=== PATIENT | male | born 1950 | race Two or more races ===

== ENCOUNTER 2018-02-07 07:45 | Day surgery (SDC) | payer OTHER ==
[~2018-02-07] VITALS: Ht 172.7 cm; Wt 66.8 kg
[~2018-02-07 07:45] MED LIST: ALBU2.5V NPPB; BACL-19 PO; CEFD300C37 PO; FLUO40CA9 PO; FLUT1AER INH; HYDR4TAB48 PO; METH-356 PO; NITR100C6 PO; PRED20TA PO
[2018-02-07] MEDS ORDERED: FENTANYL PF 100 MCG/2ML ONE (08:28)
[2018-02-07] MEDS ORDERED: MIDAZOLAM 1 MG/ML, 2ML ONE (08:28)
[2018-02-07 08:33] VITALS: BP 122/81
[2018-02-07] MEDS ORDERED: LACTATED RINGERS 1,000 ML IV SCH (08:35)
[2018-02-07 08:48] VITALS: BP 122/81
[2018-02-07] MEDS ORDERED: GABAPENTIN 300 MG CAPSULE PO ONE (09:00)
[2018-02-07] MEDS ORDERED: OxyconTIN ER 20 MG TAB.ER PO ONE (09:00)
[2018-02-07] MEDS ORDERED: ONDANSETRON ODT 8 MG PO ONE (09:00)
[2018-02-07] MEDS ORDERED: ACETAMINOPHEN 500 MG TABLET PO ONE (09:00)
[2018-02-07] MEDS ORDERED: LIDOCAINE-MPF 2% ,5ML ONE (09:36)
[2018-02-07] MEDS ORDERED: DEXAMETHASONE 4 MG/ML, 1ML ONE (09:36)
[2018-02-07] MEDS ORDERED: CEFAZOLIN 1,000 MG ONE (09:36)
[2018-02-07] MEDS ORDERED: PROPOFOL 10 MG/ML, 20ML ONE (09:36)
[2018-02-07] MEDS ORDERED: morphine SULFATE 10 MG/ML, 1ML IV PRN (10:00)
[2018-02-07] MEDS ORDERED: HYDROmorphone 1 MG/ML, 1ML IV PRN (10:00)
[2018-02-07] MEDS ORDERED: PROMETHAZINE 25 MG/ML, 1ML IV PRN (10:00)
[2018-02-07] MEDS ORDERED: ALBUTEROL SULFATE 2.5 MG/3 ML NPPB PRN (10:00)
[2018-02-07] MEDS ORDERED: LORazepam 2 MG/ML, 1ML IVPush PRN (10:00)
[2018-02-07] MEDS ORDERED: LABETALOL 5MG/ML, 20ML IV PRN (10:00)
[2018-02-07] MEDS ORDERED: FENTANYL PF 100 MCG/2ML IV PRN (10:00)
[2018-02-07] MEDS ORDERED: hydrALAzine 20 MG/ML, 1ML IV PRN (10:00)
[2018-02-07] MEDS ORDERED: OXYcodone 5 MG/5 ML ORAL.SOL UDC PO PRN (10:00)
[2018-02-07] MEDS ORDERED: PROMETHAZINE 12.5 MG SUPP PR PRN (10:00)
[2018-02-07] MEDS ORDERED: MEPERIDINE/PF 25MG/0.5ML IVPush PRN (10:00)
== END 2018-02-07 15:15 ==
LOC: OUT 07:45
PROVIDERS: ATTEND Student in an Organized Health Care Education/Training Program
DX: N30.20 Other chronic cystitis without hematuria (principal); J44.9 Chronic obstructive pulmonary disease, unspecified; I10 Essential (primary) hypertension
CPT/HCPCS: 52204; 88305; J0690; J1100; J2250; J2704; J3010; J3490; J7120; Q0162

== ENCOUNTER 2018-06-28 02:24 | Inpatient (IN) | payer OTHER ==
[~2018-06-28] VITALS: Ht 170.2 cm; Wt 62.4 kg
[2018-06-28] MEDS ORDERED: methylPREDNISolone SOD SUCC 125 MG/2 ML IVP ONE (03:00)
[2018-06-28] MEDS ORDERED: SODIUM CHLORIDE 0.9% 1,000ML IVBOLUS ONE (03:00)
[2018-06-28] MEDS ORDERED: methylPREDNISolone SOD SUCC 125 MG/2 ML ONE (03:03)
[2018-06-28 03:22] LABS: BASOPHILS # (AUTO) 0.03 x10^3/uL (0-0.1); BASOPHILS % (AUTO) 0 % (0-1); EOSINOPHILS # (AUTO) 0.71 x10^3/uL (0-0.4); EOSINOPHILS % (AUTO) 10 % (1-7); LYMPHOCYTES % (AUTO) 19 % (22-44); MD NO; MEAN CORPUSCULAR HEMOGLOBIN 28.4 pg (27.5-34.5); MEAN CORPUSCULAR HGB CONC 32.3 g/dL (33.2-36.2); MEAN CORPUSCULAR VOLUME 87.7 fL (81-97); MEAN PLATELET VOLUME 9.3 fL (7.4-10.4); MONOCYTES % (AUTO) 6 % (2-9); NEUTROPHILS # (AUTO) 4.73 x10^3/uL (1.8-6.8); NEUTROPHILS % (AUTO) 65 % (42-75); PLATELET COUNT 199 x10^3/uL (130-400); RED BLOOD COUNT 4.85 x10^6/uL (4.38-5.82); RED CELL DISTRIBUTION WIDTH 17.7 % (9.4-14.8)
[2018-06-28 03:27] LABS: ALANINE AMINOTRANSFERASE 18 U/L (12-78); ANION GAP 7 mmol/L (5-15); CALCIUM 8.7 mg/dL (8.5-10.1); CHLORIDE 106 mmol/L (98-107); CREATININE 1.05 mg/dL (0.7-1.3)
[2018-06-28 03:28] LABS: ALBUMIN 3.4 g/dL (3.4-5.0)
[2018-06-28 03:32] LABS: ALKALINE PHOSPHATASE 116 U/L (45-117); BILIRUBIN,TOTAL 0.4 mg/dL (0.2-1.0); TOTAL PROTEIN 6.9 g/dL (6.4-8.2); TROPONIN I < 0.015 ng/mL (0.000-0.045)
[2018-06-28] MEDS ORDERED: SODIUM CHLORIDE 0.9% 1,000 ML IV ONE (04:08)
[2018-06-28] MEDS ORDERED: PROMETHAZINE 25 MG/ML, 1ML IM PRN (04:30)
[2018-06-28] MEDS ORDERED: ONDANSETRON 2MG/ML, 2ML IVPush PRN (04:30)
[2018-06-28] MEDS ORDERED: hydrALAzine 20 MG/ML, 1ML IVPush PRN (04:30)
[2018-06-28] MEDS ORDERED: ALBUTEROL SULFATE 2.5 MG/3 ML NPPB PRN (04:30)
[2018-06-28] MEDS ORDERED: DIPHENHYDRAMINE 25 MG CAPSULE PO PRN (04:30)
[2018-06-28] MEDS ORDERED: POLYETHYLENE GLYCOL 17 GM PACKET PO PRN (04:30)
[2018-06-28] MEDS ORDERED: POTASSIUM CHLORIDE 20 MEQ TAB.ER.PRT PO ONE (04:30)
[2018-06-28] MEDS ORDERED: POTASSIUM CHLORIDE 20 MEQ TAB.ER.PRT ONE (05:45)
[2018-06-28] MEDS ORDERED: ENOXAPARIN 40 MG/0.4 ML ONE (05:45)
[2018-06-28 06:00] VITALS: BP 115/64
[2018-06-28] MEDS: ENOXAPARIN 40 MG/0.4 ML SQ SCH (06:06)
[2018-06-28] MEDS: NS + 20MEQ KCL 1,000 ML IV SCH ×2 (06:09→15:22)
[2018-06-28] MEDS: ALBUTEROL/IPRATROPIUM 2.5MG/0.5MG, 3 ML NPPB SCH ×4 (07:00→20:00)
[2018-06-28] MEDS: FLUTICASONE/VILANTEROL 100-25MCG/INH INH SCH (09:00)
[2018-06-28] MEDS: FLUOXETINE HCL 20 MG CAPSULE PO SCH (09:45)
[2018-06-28] MEDS: BACLOFEN 10 MG TABLET PO SCH (09:45)
[2018-06-28] MEDS: METHADONE 10 MG TABLET PO SCH ×3 (09:46→21:23)
[2018-06-28] MEDS: methylPREDNISolone SOD SUCC 125 MG/2 ML IVPush SCH ×3 (09:46→21:23)
[2018-06-28] MEDS ORDERED: HYDROmorphone 2MG TABLET ONE ×2 (09:51→22:37)
[2018-06-28] MEDS: HYDROmorphone 4MG TABLET PO PRN ×2 (09:56→22:50)
[2018-06-28 14:23] VITALS: BP 101/56
[2018-06-28 21:30] VITALS: BP 112/54
[2018-06-28] MEDS: ACETAMINOPHEN 325 MG TABLET PO PRN (22:49)
[2018-06-29 02:05] VITALS: BP 123/71
[2018-06-29] MEDS: NS + 20MEQ KCL 1,000 ML IV SCH (03:14)
[2018-06-29] MEDS: methylPREDNISolone SOD SUCC 125 MG/2 ML IVPush SCH ×3 (04:02→15:29)
[2018-06-29] MEDS: ENOXAPARIN 40 MG/0.4 ML SQ SCH (05:52)
[2018-06-29] MEDS: ALBUTEROL/IPRATROPIUM 2.5MG/0.5MG, 3 ML NPPB SCH ×3 (07:12→15:10)
[2018-06-29 07:24] VITALS: BP 122/67
[2018-06-29] MEDS: FLUTICASONE/VILANTEROL 100-25MCG/INH INH SCH (09:00)
[2018-06-29] MEDS ORDERED: METH4TAB2 PO (09:48)
[2018-06-29] MEDS: BACLOFEN 10 MG TABLET PO SCH (09:52)
[2018-06-29] MEDS: FLUOXETINE HCL 20 MG CAPSULE PO SCH (09:53)
[2018-06-29] MEDS: METHADONE 10 MG TABLET PO SCH ×2 (09:53→15:29)
[2018-06-29] MEDS ORDERED: HYDROmorphone 2MG TABLET ONE (10:52)
[2018-06-29] MEDS: HYDROmorphone 4MG TABLET PO PRN (10:56)
[2018-06-29] MEDS: ACETAMINOPHEN 325 MG TABLET PO PRN (11:31)
[2018-06-29 15:35] VITALS: BP 103/64
== END 2018-06-29 17:17 | disposition home or self-care (01) | DRG 189 ==
LOC: ED 02:33 → EDIP 04:08 → 4EST 05:40
PROVIDERS: ADMIT Hospitalist; ATTEND Hospitalist
DX: J96.21 Acute and chronic respiratory failure with hypoxia (principal); J44.1 Chronic obstructive pulmonary disease with (acute) exacerbation; F41.0 Panic disorder [episodic paroxysmal anxiety]; M45.9 Ankylosing spondylitis of unspecified sites in spine; E11.9 Type 2 diabetes mellitus without complications; M79.7 Fibromyalgia; F17.210 Nicotine dependence, cigarettes, uncomplicated; G62.9 Polyneuropathy, unspecified; G89.29 Other chronic pain; Z87.01 Personal history of pneumonia (recurrent); Z71.6 Tobacco abuse counseling; Z90.49 Acquired absence of other specified parts of digestive tract; Z87.442 Personal history of urinary calculi; Z99.81 Dependence on supplemental oxygen; Z79.899 Other long term (current) drug therapy; Z88.2 Allergy status to sulfonamides; Z91.018 Allergy to other foods
CPT/HCPCS: 36415; 71045; 80053; 83880; 84484; 85025; 87040; 93005; 94640; 94644; 96361; 96374; 99291; G0378; J1650; J3480; J7620; J2930; J7030

== ENCOUNTER 2018-07-02 07:49 | Emergency (ER) | payer OTHER ==
[~2018-07-02] VITALS: Ht 172.7 cm; Wt 62.0 kg
[~2018-07-02 07:49] MED LIST changes: +METH4TAB2 PO
[2018-07-02] MEDS ORDERED: SODIUM CHLORIDE 0.9% 1,000 ML IV ONE (07:59)
[2018-07-02] MEDS ORDERED: ONDANSETRON ODT 4 MG PO ONE (08:00)
[2018-07-02] MEDS ORDERED: SODIUM CHLORIDE 0.9% 1,000ML IVBOLUS ONE (08:00)
[2018-07-02] MEDS ORDERED: SODIUM CHLORIDE FLUSH 10ML SYR IVF ONE (08:00)
[2018-07-02] MEDS ORDERED: HYDROmorphone 2 MG/ML, 1ML IVPush PRN (08:00)
[2018-07-02 08:40] LABS: BASOPHILS # (AUTO) 0.04 x10^3/uL (0-0.1); BASOPHILS % (AUTO) 0 % (0-1); EOSINOPHILS # (AUTO) 0.04 x10^3/uL (0-0.4); EOSINOPHILS % (AUTO) 0 % (1-7); LYMPHOCYTES # (AUTO) 0.72 x10^3/uL (1-3.4); LYMPHOCYTES % (AUTO) 8 % (22-44); MD NO; MEAN CORPUSCULAR HEMOGLOBIN 27.8 pg (27.5-34.5); MEAN CORPUSCULAR VOLUME 86.8 fL (81-97); MEAN PLATELET VOLUME 9.4 fL (7.4-10.4); MONOCYTES # (AUTO) 0.59 x10^3/uL (0.2-0.8); MONOCYTES % (AUTO) 6 % (2-9); NEUTROPHILS # (AUTO) 8.24 x10^3/uL (1.8-6.8); NEUTROPHILS % (AUTO) 86 % (42-75); PLATELET COUNT 229 x10^3/uL (130-400); RED BLOOD COUNT 5.69 x10^6/uL (4.38-5.82); RED CELL DISTRIBUTION WIDTH 17.5 % (9.4-14.8)
[2018-07-02] MEDS ORDERED: ONDANSETRON ODT 4 MG ONE (08:43)
[2018-07-02] MEDS ORDERED: HYDROmorphone 2 MG/ML, 1ML ONE (08:43)
[2018-07-02 08:49] LABS: ALANINE AMINOTRANSFERASE 33 U/L (12-78); ANION GAP 9 mmol/L (5-15); CALCIUM 8.8 mg/dL (8.5-10.1); CHLORIDE 99 mmol/L (98-107); CREATININE 0.88 mg/dL (0.7-1.3)
[2018-07-02 08:51] LABS: ALKALINE PHOSPHATASE 110 U/L (45-117); TOTAL PROTEIN 6.7 g/dL (6.4-8.2)
[2018-07-02] MEDS ORDERED: OMNIPAQUE 350 MG/ML, 100ML BOTTLE ONE (09:49)
[2018-07-02 11:52] LABS: MICROSCOPIC AUTO
[2018-07-02 12:05] LABS: CULTURE INDICATED? YES
[2018-07-02 13:22] VITALS: BP 101/56
== END 2018-07-02 13:26 | disposition home or self-care (01) ==
LOC: ED 10:12
DX: N30.00 Acute cystitis without hematuria (principal); R11.2 Nausea with vomiting, unspecified; J44.9 Chronic obstructive pulmonary disease, unspecified; E11.9 Type 2 diabetes mellitus without complications; Z90.49 Acquired absence of other specified parts of digestive tract; F17.200 Nicotine dependence, unspecified, uncomplicated
CPT/HCPCS: 36415; 74177; 80053; 81001; 83690; 85025; 87086; 93005; 96361; 96374; 99285; J1170; J7030; Q0162; Q9967; 87106

== ENCOUNTER 2018-08-26 22:32 | Emergency (ER) | payer OTHER ==
[~2018-08-26] VITALS: Ht 170.2 cm; Wt 65.0 kg
[2018-08-26] MEDS ORDERED: ONDANSETRON ODT 4 MG PO ONE (23:00)
[2018-08-26] MEDS ORDERED: methylPREDNISolone SOD SUCC 125 MG/2 ML IVPush ONE (23:00)
[2018-08-26 23:21] LABS: BASOPHILS # (AUTO) 0.14 x10^3/uL (0-0.1); BASOPHILS % (AUTO) 2 % (0-1); EOSINOPHILS # (AUTO) 0.68 x10^3/uL (0-0.4); EOSINOPHILS % (AUTO) 8 % (1-7); LYMPHOCYTES # (AUTO) 0.83 x10^3/uL (1-3.4); LYMPHOCYTES % (AUTO) 10 % (22-44); MD NO; MEAN CORPUSCULAR HEMOGLOBIN 28.1 pg (27.5-34.5); MEAN CORPUSCULAR HGB CONC 32.5 g/dL (33.2-36.2); MEAN CORPUSCULAR VOLUME 86.6 fL (81-97); MEAN PLATELET VOLUME 9.2 fL (7.4-10.4); MONOCYTES # (AUTO) 0.45 x10^3/uL (0.2-0.8); MONOCYTES % (AUTO) 5 % (2-9); NEUTROPHILS # (AUTO) 6.61 x10^3/uL (1.8-6.8); NEUTROPHILS % (AUTO) 76 % (42-75); PLATELET COUNT 184 x10^3/uL (130-400); RED BLOOD COUNT 4.61 x10^6/uL (4.38-5.82); RED CELL DISTRIBUTION WIDTH 18.4 % (9.4-14.8)
[2018-08-26 23:31] LABS: ALANINE AMINOTRANSFERASE 20 U/L (12-78); ANION GAP 7 mmol/L (5-15); CHLORIDE 111 mmol/L (98-107); CREATININE 0.96 mg/dL (0.7-1.3)
[2018-08-26] MEDS ORDERED: methylPREDNISolone SOD SUCC 125 MG/2 ML ONE (23:32)
[2018-08-26] MEDS ORDERED: ONDANSETRON ODT 4 MG ONE (23:32)
[2018-08-26 23:35] LABS: ALKALINE PHOSPHATASE 112 U/L (45-117); BILIRUBIN,TOTAL 0.2 mg/dL (0.2-1.0); TOTAL PROTEIN 6.3 g/dL (6.4-8.2); TROPONIN I < 0.015 ng/mL (0.000-0.045)
[2018-08-27 01:36] VITALS: BP 105/48
== END 2018-08-27 01:57 | disposition home or self-care (01) ==
LOC: ED 23:23
DX: J44.1 Chronic obstructive pulmonary disease with (acute) exacerbation (principal); F17.210 Nicotine dependence, cigarettes, uncomplicated; Z90.49 Acquired absence of other specified parts of digestive tract; E11.9 Type 2 diabetes mellitus without complications
CPT/HCPCS: 36415; 71045; 80053; 83880; 84484; 85025; 93005; 96374; 99284; J2930; Q0162

== ENCOUNTER 2018-08-30 23:21 | Inpatient (IN) | payer OTHER ==
[~2018-08-30] VITALS: Ht 175.3 cm; Wt 62.9 kg
[2018-08-30] MEDS ORDERED: IPRATROPIUM 0.5 MG/2.5 ML INHA ONE (23:40)
[2018-08-30 23:48] LABS: BASOPHILS # (AUTO) 0.02 x10^3/uL (0-0.1); BASOPHILS % (AUTO) 0 % (0-1); EOSINOPHILS # (AUTO) 0.01 x10^3/uL (0-0.4); EOSINOPHILS % (AUTO) 0 % (1-7); LYMPHOCYTES % (AUTO) 6 % (22-44); MD NO; MEAN CORPUSCULAR HEMOGLOBIN 28.1 pg (27.5-34.5); MEAN CORPUSCULAR HGB CONC 32.4 g/dL (33.2-36.2); MEAN CORPUSCULAR VOLUME 86.7 fL (81-97); MONOCYTES % (AUTO) 5 % (2-9); NEUTROPHILS # (AUTO) 7.22 x10^3/uL (1.8-6.8); NEUTROPHILS % (AUTO) 89 % (42-75); PLATELET COUNT 229 x10^3/uL (130-400); RED BLOOD COUNT 4.82 x10^6/uL (4.38-5.82); RED CELL DISTRIBUTION WIDTH 18.2 % (9.4-14.8)
[2018-08-30 23:56] LABS: ANION GAP 8 mmol/L (5-15); CALCIUM 8.7 mg/dL (8.5-10.1); CHLORIDE 105 mmol/L (98-107); CREATININE 0.86 mg/dL (0.7-1.3)
[2018-08-31] LABS: TROPONIN I < 0.015 ng/mL (0.000-0.045)
[2018-08-31] MEDS ORDERED: IPRATROPIUM 0.5 MG/2.5 ML INHA NPPB ONE
[2018-08-31] MEDS ORDERED: CEFTRIAXONE PMX 1GM/50ML 50 ML ONE (00:21)
[2018-08-31] MEDS ORDERED: CEFTRIAXONE PMX 1GM/50ML 50 ML IV ONE (00:30)
[2018-08-31] MEDS ORDERED: AZITHROMYCIN 500 MG in SODIUM CHLORIDE 0.9% 250 ML IV ONE (00:30)
[2018-08-31] MEDS ORDERED: GUAIFENESIN/COD200MG-20MG/10ML LIQUID PO PRN (01:00)
[2018-08-31] MEDS ORDERED: hydrALAzine 20 MG/ML, 1ML IVPush PRN (01:00)
[2018-08-31] MEDS ORDERED: ONDANSETRON 2MG/ML, 2ML IVPush PRN (01:00)
[2018-08-31] MEDS ORDERED: ALBUTEROL SULFATE 2.5 MG/3 ML NPPB PRN (01:00)
[2018-08-31] MEDS ORDERED: DOCUSATE 100 MG CAPSULE PO PRN (01:00)
[2018-08-31] MEDS ORDERED: ACETAMINOPHEN 325 MG TABLET PO PRN (01:00)
[2018-08-31] MEDS ORDERED: ENOXAPARIN 40 MG/0.4 ML ONE (01:14)
[2018-08-31] MEDS ORDERED: NICOTINE 14MG/24 HR PATCH.TD24 ONE (01:15)
[2018-08-31] MEDS: ENOXAPARIN 40 MG/0.4 ML SQ SCH (01:18)
[2018-08-31] MEDS: NICOTINE 14MG/24 HR PATCH.TD24 TD SCH (01:18)
[2018-08-31 02:00] VITALS: BP 116/74
[2018-08-31] MEDS: methylPREDNISolone SOD SUCC 125 MG/2 ML IVPush SCH ×4 (02:46→20:41)
[2018-08-31] MEDS: ONDANSETRON 2MG/ML, 2ML IVPush PRN (02:47)
[2018-08-31] MEDS: HYDROcodone/APAP 5/325 TABLET PO PRN (02:47)
[2018-08-31] MEDS: BACLOFEN 10 MG TABLET PO PRN ×2 (02:47→16:18)
[2018-08-31] MEDS: ALBUTEROL/IPRATROPIUM 2.5MG/0.5MG, 3 ML NPPB SCH ×6 (03:00→22:30)
[2018-08-31] MEDS ORDERED: ALBUTEROL SULFATE 2.5 MG/3 ML HHN SCH (06:00)
[2018-08-31 07:28] VITALS: BP 117/67
[2018-08-31] MEDS: PANTOPROZOLE 40MG TABLET PO SCH (08:29)
[2018-08-31] MEDS: METHADONE 10 MG TABLET PO SCH ×3 (08:29→20:41)
[2018-08-31] MEDS: FLUOXETINE HCL 20 MG CAPSULE PO SCH (08:30)
[2018-08-31] MEDS: BUDESONIDE 0.5 MG/2 ML INHA HHN SCH ×2 (09:00→18:32)
[2018-08-31] MEDS ORDERED: FLUTICASONE/VILANTEROL 100-25MCG/INH INH SCH (09:00)
[2018-08-31 12:49] VITALS: BP 116/70
[2018-08-31 15:25] LABS: CULTURE INDICATED? YES; MICROSCOPIC INDICATED
[2018-08-31 19:41] VITALS: BP 118/73
[2018-09-01] MEDS: CEFTRIAXONE PMX 1GM/50ML 50 ML IV SCH ×2 (00:11→23:40)
[2018-09-01 01:02] VITALS: BP 135/71
[2018-09-01] MEDS: AZITHROMYCIN 500 MG in SODIUM CHLORIDE 0.9% 250 ML IV SCH (01:15)
[2018-09-01] MEDS: ENOXAPARIN 40 MG/0.4 ML SQ SCH (01:15)
[2018-09-01] MEDS: NICOTINE 14MG/24 HR PATCH.TD24 TD SCH (01:15)
[2018-09-01] MEDS: HYDROcodone/APAP 5/325 TABLET PO PRN ×2 (01:16→08:22)
[2018-09-01] MEDS: ALBUTEROL/IPRATROPIUM 2.5MG/0.5MG, 3 ML NPPB SCH ×6 (03:00→22:50)
[2018-09-01] MEDS: methylPREDNISolone SOD SUCC 125 MG/2 ML IVPush SCH ×2 (04:21→08:23)
[2018-09-01 05:17] LABS: BASOPHILS # (AUTO) 0.06 x10^3/uL (0-0.1); BASOPHILS % (AUTO) 1 % (0-1); EOSINOPHILS % (AUTO) 0 % (1-7); LYMPHOCYTES # (AUTO) 0.57 x10^3/uL (1-3.4); LYMPHOCYTES % (AUTO) 5 % (22-44); MD NO; MEAN CORPUSCULAR HEMOGLOBIN 28.2 pg (27.5-34.5); MEAN CORPUSCULAR HGB CONC 32.3 g/dL (33.2-36.2); MEAN CORPUSCULAR VOLUME 87.3 fL (81-97); MEAN PLATELET VOLUME 9.2 fL (7.4-10.4); MONOCYTES # (AUTO) 0.39 x10^3/uL (0.2-0.8); MONOCYTES % (AUTO) 4 % (2-9); NEUTROPHILS # (AUTO) 10.12 x10^3/uL (1.8-6.8); NEUTROPHILS % (AUTO) 91 % (42-75); PLATELET COUNT 222 x10^3/uL (130-400); RED BLOOD COUNT 4.57 x10^6/uL (4.38-5.82); RED CELL DISTRIBUTION WIDTH 18.4 % (9.4-14.8)
[2018-09-01 05:27] LABS: ANION GAP 6 mmol/L (5-15); CHLORIDE 106 mmol/L (98-107); CREATININE 0.93 mg/dL (0.7-1.3)
[2018-09-01] MEDS: BUDESONIDE 0.5 MG/2 ML INHA HHN SCH ×2 (07:10→18:53)
[2018-09-01 07:24] VITALS: BP 147/73
[2018-09-01] MEDS: FLUOXETINE HCL 20 MG CAPSULE PO SCH (08:21)
[2018-09-01] MEDS: BACLOFEN 10 MG TABLET PO PRN (08:21)
[2018-09-01] MEDS: PANTOPROZOLE 40MG TABLET PO SCH (08:22)
[2018-09-01] MEDS: METHADONE 10 MG TABLET PO SCH ×3 (08:23→22:01)
[2018-09-01] MEDS ORDERED: HYDROmorphone 4MG TABLET PO PRN (11:30)
[2018-09-01] MEDS: HYDROmorphone 2MG TABLET PO PRN (12:36)
[2018-09-01 12:37] VITALS: BP 118/74
[2018-09-01 19:53] VITALS: BP 128/66
[2018-09-02] MEDS ORDERED: AZIT500T5 PO (00:23)
[2018-09-02] MEDS ORDERED: OMEP-110 PO (00:23)
[2018-09-02] MEDS ORDERED: ALBU2.5V NPPB (00:23)
[2018-09-02] MEDS ORDERED: PRED10TA PO (00:23)
[2018-09-02] MEDS: AZITHROMYCIN 500 MG in SODIUM CHLORIDE 0.9% 250 ML IV SCH (01:15)
[2018-09-02] MEDS: NICOTINE 14MG/24 HR PATCH.TD24 TD SCH (01:16)
[2018-09-02] MEDS: ENOXAPARIN 40 MG/0.4 ML SQ SCH (01:16)
[2018-09-02 01:46] VITALS: BP 131/75
[2018-09-02] MEDS: ALBUTEROL/IPRATROPIUM 2.5MG/0.5MG, 3 ML NPPB SCH ×4 (02:39→14:08)
[2018-09-02] MEDS: HYDROmorphone 2MG TABLET PO PRN (04:23)
[2018-09-02] MEDS: BUDESONIDE 0.5 MG/2 ML INHA HHN SCH (06:50)
[2018-09-02 07:15] VITALS: BP 139/83
[2018-09-02] MEDS ORDERED: METHADONE 5 MG TABLET ONE (07:41)
[2018-09-02] MEDS: PANTOPROZOLE 40MG TABLET PO SCH (07:45)
[2018-09-02] MEDS: METHADONE 10 MG TABLET PO SCH (07:46)
[2018-09-02] MEDS: FLUOXETINE HCL 20 MG CAPSULE PO SCH (07:46)
[2018-09-02] MEDS ORDERED: TAMS-11 PO (11:00)
[2018-09-02] MEDS ORDERED: ONDANSETRON ODT 4 MG ONE (12:27)
[2018-09-02] MEDS: ONDANSETRON 2MG/ML, 2ML IVPush PRN (12:29)
[2018-09-02 13:08] VITALS: BP 149/81
== END 2018-09-02 15:20 | disposition home or self-care (01) | DRG 193 ==
LOC: ED 23:39 → EDIP 08-31 00:33 → 4EST 08-31 01:54 → DCLOUNGE 09-02 15:07
PROVIDERS: ADMIT Internal Medicine; ATTEND Internal Medicine
PROC: 0T9B70Z Drainage of Bladder with Drainage Device, Via Natural or Artificial Opening (ICD-10-PCS; principal; 2018-09-02)
DX: J15.9 Unspecified bacterial pneumonia (principal); J96.21 Acute and chronic respiratory failure with hypoxia; J44.1 Chronic obstructive pulmonary disease with (acute) exacerbation; K51.90 Ulcerative colitis, unspecified, without complications; J44.0 Chronic obstructive pulmonary disease with (acute) lower respiratory infection; G89.29 Other chronic pain; E11.42 Type 2 diabetes mellitus with diabetic polyneuropathy; Z87.442 Personal history of urinary calculi; Z90.49 Acquired absence of other specified parts of digestive tract; Z99.81 Dependence on supplemental oxygen; Z88.2 Allergy status to sulfonamides
CPT/HCPCS: 36415; 71045; 80048; 81001; 82040; 83735; 83880; 84100; 84484; 85025; 87040; 87086; 87205; 93005; 94640; 96365; 96367; 96372; G0378; J0456; J0696; J1650; J2405; J7620; J7626; J7644; J2930; J7050; J7512

== ENCOUNTER 2018-09-08 12:11 | Emergency (ER) | payer OTHER ==
[~2018-09-08] VITALS: Ht 172.7 cm; Wt 67.7 kg
[~2018-09-08 12:11] MED LIST changes: +AZIT500T5 PO; +OMEP-110 PO; +PRED10TA PO; +TAMS-11 PO
[2018-09-08 12:17] VITALS: BP 120/57
[2018-09-08] MEDS ORDERED: LIDOCAINE 2%,20 ML JEL.PF.APP MM ONE (13:13)
== END 2018-09-08 14:23 | disposition home or self-care (01) ==
LOC: ED 13:02
DX: R33.9 Retention of urine, unspecified (principal); T83.098A Other mechanical complication of other urinary catheter, initial encounter; J44.9 Chronic obstructive pulmonary disease, unspecified; E11.9 Type 2 diabetes mellitus without complications; F32.9 Major depressive disorder, single episode, unspecified; Z90.49 Acquired absence of other specified parts of digestive tract
CPT/HCPCS: 51702; 99284; C1726; 99283

== ENCOUNTER → 2018-09-25 | Outpatient (CLI) | payer OTHER ==
[~2018-09-25] MED LIST changes: -METH-356 PO; +METH10TA2 PO
== END | disposition home or self-care (01) ==
LOC: CFH 13:07
PROVIDERS: ATTEND Registered Nurse
DX: M51.37 Other intervertebral disc degeneration, lumbosacral region (principal); M41.86 Other forms of scoliosis, lumbar region
CPT/HCPCS: 72114; 72202

== ENCOUNTER 2019-02-14 20:51 | Inpatient (IN) | payer MEDICARE ==
[~2019-02-14] VITALS: Ht 172.7 cm; Wt 79.0 kg
[~2019-02-14 20:51] MED LIST changes: +PROPOFOL 10 MG/ML, 100ML IV ONE
[2019-02-14 21:12] LABS: BASOPHILS # (AUTO) 0.09 x10^3/uL (0-0.1); BASOPHILS % (AUTO) 1 % (0-1); EOSINOPHILS # (AUTO) 1.38 x10^3/uL (0-0.4); EOSINOPHILS % (AUTO) 13 % (1-7); LYMPHOCYTES # (AUTO) 2.46 x10^3/uL (1-3.4); LYMPHOCYTES % (AUTO) 24 % (22-44); MD NO; MEAN CORPUSCULAR HEMOGLOBIN 25.3 pg (27.5-34.5); MEAN CORPUSCULAR HGB CONC 31.2 g/dL (33.2-36.2); MEAN CORPUSCULAR VOLUME 80.9 fL (81-97); MEAN PLATELET VOLUME 9.6 fL (7.4-10.4); MONOCYTES # (AUTO) 0.58 x10^3/uL (0.2-0.8); MONOCYTES % (AUTO) 6 % (2-9); NEUTROPHILS % (AUTO) 56 % (42-75); PLATELET COUNT 268 x10^3/uL (130-400); RED BLOOD COUNT 4.65 x10^6/uL (4.38-5.82); RED CELL DISTRIBUTION WIDTH 18.7 % (9.4-14.8)
[2019-02-14] MEDS ORDERED: ALBUTEROL/IPRATROPIUM 2.5MG/0.5MG, 3 ML ONE (21:12)
--- NOTE | 2019-02-14 21:13 | NUR ---
bib remsa for resp distress. pt called was a/ox4 tripoding while going to the ambulance from house. pt then intubated, given 250 ketamine/100mcg fent. bp was 170's sbp in route.
[2019-02-14 21:24] LABS: ALANINE AMINOTRANSFERASE 15 U/L (12-78); ALBUMIN 3.2 g/dL (3.4-5.0); ANION GAP 5 mmol/L (5-15); CALCIUM 8.2 mg/dL (8.5-10.1); CHLORIDE 110 mmol/L (98-107); CREATININE 1.12 mg/dL (0.7-1.3)
[2019-02-14 21:28] LABS: ALKALINE PHOSPHATASE 111 U/L (45-117); BILIRUBIN,TOTAL < 0.1 mg/dL (0.2-1.0); TOTAL PROTEIN 6.5 g/dL (6.4-8.2); TROPONIN I < 0.015 ng/mL (0.000-0.045)
[2019-02-14] MEDS ORDERED: SODIUM CHLORIDE 0.9% 1,000ML IVBOLUS ONE ×2 (21:30→22:30)
[2019-02-14] MEDS: ALBUTEROL/IPRATROPIUM 2.5MG/0.5MG, 3 ML INLINE SCH (21:30)
[2019-02-14] MEDS ORDERED: NOREPINEPHRINE 4 MG in SODIUM CHLORIDE 0.9% 246 ML IV PRN ×2 (21:30→22:18)
[2019-02-14] MEDS ORDERED: MIDAZOLAM HCL 50 MG in SODIUM CHLORIDE 0.9% 240 ML IV PRN (21:30)
--- NOTE | 2019-02-14 21:41 | NUR ---
at bs, stated "jon" for password to talk to her on phone c/o poc. gave cell phone and 1 denture. so no belongings with pt left.
--- NOTE | 2019-02-14 21:57 | NUR ---
2 sets bc drawn by elizabeth from lab
[2019-02-14] MEDS ORDERED: ALBUTEROL/IPRATROPIUM 2.5MG/0.5MG, 3 ML NPPB PRN (22:00)
--- NOTE | 2019-02-14 22:02 | NUR ---
spouse: Jennifer Durand [phone] cell [phone]
--- NOTE | 2019-02-14 22:08 | NUR ---
daughter info: SUSHIL Srinivasan [phone] password: [email or web address]
--- NOTE | 2019-02-14 22:19 | NUR ---
per md paez give full liter bolus, started other 500ml now. set up for central line, pt sedated, see vs. went home with belongings
--- NOTE | 2019-02-14 22:26 | NUR ---
bedside report to karla hua. 1st bolus of ns is infusing, to be followed by 2nd liter then will reassess the central line after that is finished.
[2019-02-14] MEDS ORDERED: LIDOCAINE-MPF 1%, 2ML ENDO PRN (22:30)
[2019-02-14] MEDS ORDERED: BISACODYL 10 MG SUPP PR PRN (22:30)
[2019-02-14] MEDS ORDERED: SENNA/DOCUSATE TABLET NG PRN (22:30)
[2019-02-14] MEDS ORDERED: GLUCAGON 1 MG IM PRN (22:30)
[2019-02-14] MEDS ORDERED: PHARMACY MAY ADJ FOR RENAL FX MC SCH (22:30)
[2019-02-14] MEDS ORDERED: DEXTROSE 4 GM TAB.CHEW PO PRN (22:30)
[2019-02-14] MEDS ORDERED: SENNA 176 MG/5 ML ORAL SOL NG PRN (22:30)
[2019-02-14] MEDS ORDERED: DEXTROSE 50%, 50ML SYRINGE IVPush PRN (22:30)
--- NOTE | 2019-02-14 22:37 | NUR ---
Dr. Choi at bedside to evaluate pt for admission.
[2019-02-14] MEDS ORDERED: methylPREDNISolone SOD SUCC 125 MG/2 ML IVPush STA (22:38)
[2019-02-14] MEDS ORDERED: methylPREDNISolone SOD SUCC 125 MG/2 ML ONE (22:49)
[2019-02-14] MEDS ORDERED: FAMOTIDINE 20 MG/2 ML ONE (22:50)
[2019-02-14] MEDS: FAMOTIDINE 20 MG/2 ML IV SCH (22:55)
--- NOTE | 2019-02-14 22:56 | NUR ---
Pt medicated per MAR. Pt remains on all monitors, NSR noted, 2nd liter of NS infusing, BP remains stable, MAP 74. Will pause levophed to reassess need after 2nd liter is complete, per conversation with ERP.
[2019-02-14] MEDS ORDERED: methylPREDNISolone SOD SUCC 125 MG/2 ML IVPush SCH (23:00)
[2019-02-14] MEDS ORDERED: MIDAZOLAM 1 MG/ML, 5ML IVPush ONE (23:00)
--- NOTE | 2019-02-14 23:09 | NUR ---
Telephone SBAR report given to RNMelanie.
[2019-02-14 23:45] VITALS: BP_SYST 115; BP_SYST 92; BP_DIAS 49; BP_DIAS 52
[2019-02-15] MEDS: CEFTRIAXONE PMX 1GM/50ML 50 ML IV SCH ×2 (00:20→23:42)
[2019-02-15] MEDS: SODIUM CHLORIDE 0.9% 1,000 ML IV SCH ×2 (00:29→19:23)
[2019-02-15] MEDS: DOXYCYCLINE 100 MG in DEXTROSE 5% 250 ML IV SCH ×2 (00:59→12:21)
[2019-02-15] MEDS: ENOXAPARIN 40 MG/0.4 ML SQ SCH (01:02)
[2019-02-15 02:21] LABS: CULTURE INDICATED? YES; MICROSCOPIC INDICATED
[2019-02-15] MEDS: ALBUTEROL/IPRATROPIUM 2.5MG/0.5MG, 3 ML INLINE SCH ×6 (02:30→22:29)
[2019-02-15 03:50] VITALS: BP 102/59
[2019-02-15 04:37] LABS: MEAN CORPUSCULAR HEMOGLOBIN 25.2 pg (27.5-34.5); MEAN CORPUSCULAR VOLUME 81.3 fL (81-97); MEAN PLATELET VOLUME 9.6 fL (7.4-10.4); PLATELET COUNT 184 x10^3/uL (130-400); RED BLOOD COUNT 4.42 x10^6/uL (4.38-5.82); RED CELL DISTRIBUTION WIDTH 18.7 % (9.4-14.8)
[2019-02-15 04:44] LABS: ALANINE AMINOTRANSFERASE 39 U/L (12-78); ALBUMIN 2.9 g/dL (3.4-5.0); ANION GAP 6 mmol/L (5-15); CALCIUM 8.1 mg/dL (8.5-10.1); CHLORIDE 113 mmol/L (98-107)
[2019-02-15 04:48] LABS: ALKALINE PHOSPHATASE 115 U/L (45-117); BILIRUBIN,TOTAL 0.2 mg/dL (0.2-1.0); TOTAL PROTEIN 5.9 g/dL (6.4-8.2); TROPONIN I 0.028 ng/mL (0.000-0.045)
[2019-02-15 04:57] LABS: BASOPHILS # (AUTO) 0.02 x10^3/uL (0-0.1); BASOPHILS % (AUTO) 0 % (0-1); EOSINOPHILS # (AUTO) 0.01 x10^3/uL (0-0.4); EOSINOPHILS % (AUTO) 0 % (1-7); LYMPHOCYTES # (AUTO) 0.51 x10^3/uL (1-3.4); LYMPHOCYTES % (AUTO) 4 % (22-44); MD SCAN; MONOCYTES # (AUTO) 0.04 x10^3/uL (0.2-0.8); MONOCYTES % (AUTO) 0 % (2-9); NEUTROPHILS # (AUTO) 11.26 x10^3/uL (1.8-6.8); NEUTROPHILS % (AUTO) 95 % (42-75)
[2019-02-15] MEDS: PROPOFOL 100 ML IV PRN ×2 (06:11→16:15)
[2019-02-15] MEDS: BUDESONIDE 0.5 MG/2 ML INHA NPPB SCH ×2 (06:35→22:29)
[2019-02-15] MEDS: INSULIN LISPRO 100 UNITS/ML, PEN SQ-INSULIN SCH ×3 (07:00→19:27)
[2019-02-15] MEDS ORDERED: INSULIN LISPRO 100 UNITS/ML, PEN SQ-INSULIN SCH (07:00)
[2019-02-15] MEDS ORDERED: FENTANYL PF 2,500 MCG in SODIUM CHLORIDE 0.9% 200 ML IV PRN (08:30)
[2019-02-15] MEDS ORDERED: SODIUM CHLORIDE 0.9% 1,000ML IV ONE (08:30)
[2019-02-15] MEDS: HYDROCORTISONE 100 MG INJ. IVPush SCH ×3 (08:55→22:32)
[2019-02-15] MEDS: FAMOTIDINE 20 MG/2 ML IV SCH ×2 (08:55→19:24)
[2019-02-15] MEDS: SODIUM CHLORIDE FLUSH 10ML SYR IVF SCH ×2 (08:56→19:24)
[2019-02-15] MEDS: FENTANYL PF 100 MCG/2ML IVPush PRN ×4 (10:22→19:24)
[2019-02-15] MEDS ORDERED: BACLOFEN 10 MG TABLET ONE (12:10)
[2019-02-15] MEDS ORDERED: METHADONE 10 MG TABLET ONE (12:11)
[2019-02-15] MEDS: BACLOFEN 10 MG TABLET PO SCH (12:14)
[2019-02-15] MEDS: METHADONE 10 MG TABLET PO SCH ×2 (12:14→22:32)
[2019-02-15] MEDS ORDERED: ALBUMIN HUMAN 5% 500 ML IV ONE (16:30)
[2019-02-16] MEDS: ENOXAPARIN 40 MG/0.4 ML SQ SCH (01:14)
[2019-02-16] MEDS: DOXYCYCLINE 100 MG in DEXTROSE 5% 250 ML IV SCH ×2 (01:14→11:19)
[2019-02-16] MEDS: INSULIN LISPRO 100 UNITS/ML, PEN SQ-INSULIN SCH ×4 (01:14→19:56)
[2019-02-16] MEDS: ALBUTEROL/IPRATROPIUM 2.5MG/0.5MG, 3 ML INLINE SCH ×6 (02:36→22:20)
[2019-02-16] MEDS: PROPOFOL 100 ML IV PRN (03:10)
[2019-02-16] MEDS: HYDROCORTISONE 100 MG INJ. IVPush SCH ×4 (04:15→19:59)
[2019-02-16 04:32] LABS: BASOPHILS # (AUTO) 0.01 x10^3/uL (0-0.1); BASOPHILS % (AUTO) 0 % (0-1); EOSINOPHILS % (AUTO) 0 % (1-7); LYMPHOCYTES % (AUTO) 7 % (22-44); MD NO; MEAN CORPUSCULAR HEMOGLOBIN 25.7 pg (27.5-34.5); MEAN CORPUSCULAR HGB CONC 32.3 g/dL (33.2-36.2); MEAN CORPUSCULAR VOLUME 79.7 fL (81-97); MEAN PLATELET VOLUME 10.4 fL (7.4-10.4); MONOCYTES # (AUTO) 0.42 x10^3/uL (0.2-0.8); MONOCYTES % (AUTO) 3 % (2-9); NEUTROPHILS # (AUTO) 11.02 x10^3/uL (1.8-6.8); NEUTROPHILS % (AUTO) 89 % (42-75); PLATELET COUNT 159 x10^3/uL (130-400); RED BLOOD COUNT 4.15 x10^6/uL (4.38-5.82); RED CELL DISTRIBUTION WIDTH 18.6 % (9.4-14.8)
[2019-02-16 04:49] LABS: ANION GAP 6 mmol/L (5-15); CALCIUM 8.6 mg/dL (8.5-10.1); CHLORIDE 114 mmol/L (98-107); CREATININE 0.91 mg/dL (0.7-1.3)
[2019-02-16] MEDS: FENTANYL PF 100 MCG/2ML IVPush PRN (05:20)
[2019-02-16] MEDS: FAMOTIDINE 20 MG/2 ML IV SCH ×2 (08:56→19:59)
[2019-02-16] MEDS: METHADONE 10 MG TABLET PO SCH ×3 (08:56→19:59)
[2019-02-16] MEDS: ACETAMINOPHEN 325 MG TABLET PO PRN ×3 (09:02→19:06)
[2019-02-16] MEDS: SODIUM CHLORIDE FLUSH 10ML SYR IVF SCH ×2 (09:02→19:58)
[2019-02-16] MEDS: BUDESONIDE 0.5 MG/2 ML INHA NPPB SCH ×2 (10:15→18:40)
[2019-02-16] MEDS: SODIUM CHLORIDE 0.9% 1,000 ML IV SCH (14:30)
[2019-02-17] MEDS: CEFTRIAXONE PMX 1GM/50ML 50 ML IV SCH (00:02)
[2019-02-17] MEDS: DOXYCYCLINE 100 MG in DEXTROSE 5% 250 ML IV SCH ×2 (01:28→14:17)
[2019-02-17] MEDS: ENOXAPARIN 40 MG/0.4 ML SQ SCH (01:28)
[2019-02-17] MEDS: INSULIN LISPRO 100 UNITS/ML, PEN SQ-INSULIN SCH ×5 (01:32→20:47)
[2019-02-17] MEDS: ALBUTEROL/IPRATROPIUM 2.5MG/0.5MG, 3 ML INLINE SCH ×6 (02:26→23:35)
[2019-02-17 04:08] LABS: BASOPHILS # (AUTO) 0.05 x10^3/uL (0-0.1); BASOPHILS % (AUTO) 0 % (0-1); EOSINOPHILS % (AUTO) 0 % (1-7); LYMPHOCYTES # (AUTO) 0.75 x10^3/uL (1-3.4); LYMPHOCYTES % (AUTO) 7 % (22-44); MD NO; MEAN CORPUSCULAR HEMOGLOBIN 25.5 pg (27.5-34.5); MEAN CORPUSCULAR HGB CONC 31.9 g/dL (33.2-36.2); MEAN CORPUSCULAR VOLUME 79.9 fL (81-97); MEAN PLATELET VOLUME 10.5 fL (7.4-10.4); MONOCYTES # (AUTO) 0.55 x10^3/uL (0.2-0.8); MONOCYTES % (AUTO) 5 % (2-9); NEUTROPHILS # (AUTO) 9.47 x10^3/uL (1.8-6.8); NEUTROPHILS % (AUTO) 88 % (42-75); PLATELET COUNT 163 x10^3/uL (130-400); RED BLOOD COUNT 3.98 x10^6/uL (4.38-5.82); RED CELL DISTRIBUTION WIDTH 18.5 % (9.4-14.8)
[2019-02-17 04:15] LABS: ANION GAP 5 mmol/L (5-15); CALCIUM 8.4 mg/dL (8.5-10.1); CHLORIDE 113 mmol/L (98-107); CREATININE 0.81 mg/dL (0.7-1.3)
[2019-02-17] MEDS: BUDESONIDE 0.5 MG/2 ML INHA NPPB SCH ×2 (06:43→19:35)
[2019-02-17] MEDS: SODIUM CHLORIDE FLUSH 10ML SYR IVF SCH ×2 (07:52→20:51)
[2019-02-17] MEDS: FAMOTIDINE 20 MG/2 ML IV SCH (07:52)
[2019-02-17] MEDS: BACLOFEN 10 MG TABLET PO SCH (07:52)
[2019-02-17] MEDS: METHADONE 10 MG TABLET PO SCH ×3 (07:52→20:52)
[2019-02-17] MEDS: HYDROCORTISONE 100 MG INJ. IVPush SCH (07:52)
[2019-02-17 10:17] VITALS: BP 110/68
[2019-02-17] MEDS: ACETAMINOPHEN 325 MG TABLET PO PRN ×2 (11:30→20:52)
[2019-02-17 20:14] VITALS: BP 118/67
[2019-02-17] MEDS: FAMOTIDINE 20 MG TABLET PO SCH (20:52)
[2019-02-18] MEDS: CEFTRIAXONE PMX 1GM/50ML 50 ML IV SCH ×2 (00:08→23:36)
[2019-02-18] MEDS: ENOXAPARIN 40 MG/0.4 ML SQ SCH (01:41)
[2019-02-18] MEDS: DOXYCYCLINE 100 MG in DEXTROSE 5% 250 ML IV SCH ×2 (01:41→13:45)
[2019-02-18 02:22] VITALS: BP 133/82
[2019-02-18] MEDS: ALBUTEROL/IPRATROPIUM 2.5MG/0.5MG, 3 ML INLINE SCH ×4 (03:15→14:13)
[2019-02-18] MEDS: ACETAMINOPHEN 325 MG TABLET PO PRN (04:18)
[2019-02-18 06:53] VITALS: BP 144/77
[2019-02-18] MEDS: INSULIN LISPRO 100 UNITS/ML, PEN SQ-INSULIN SCH ×4 (07:00→20:31)
[2019-02-18] MEDS: BACLOFEN 10 MG TABLET PO SCH (07:55)
[2019-02-18] MEDS: METHADONE 10 MG TABLET PO SCH ×3 (07:55→20:32)
[2019-02-18] MEDS: FAMOTIDINE 20 MG TABLET PO SCH ×2 (07:55→20:32)
[2019-02-18 08:28] LABS: CALCIUM 8.5 mg/dL (8.5-10.1); CHLORIDE 113 mmol/L (98-107)
[2019-02-18 08:30] LABS: MEAN CORPUSCULAR HEMOGLOBIN 25.5 pg (27.5-34.5); MEAN CORPUSCULAR HGB CONC 31.9 g/dL (33.2-36.2); MEAN CORPUSCULAR VOLUME 79.9 fL (81-97); PLATELET COUNT 162 x10^3/uL (130-400); RED BLOOD COUNT 4.24 x10^6/uL (4.38-5.82); RED CELL DISTRIBUTION WIDTH 19.2 % (9.4-14.8)
[2019-02-18 08:32] LABS: ANION GAP 5 mmol/L (5-15); CREATININE 0.75 mg/dL (0.7-1.3)
[2019-02-18 08:53] LABS: BASOPHILS # (AUTO) 0.03 x10^3/uL (0-0.1); BASOPHILS % (AUTO) 0 % (0-1); EOSINOPHILS # (AUTO) 0.26 x10^3/uL (0-0.4); EOSINOPHILS % (AUTO) 4 % (1-7); LYMPHOCYTES # (AUTO) 1.58 x10^3/uL (1-3.4); LYMPHOCYTES % (AUTO) 23 % (22-44); MD SCAN; MONOCYTES # (AUTO) 0.51 x10^3/uL (0.2-0.8); MONOCYTES % (AUTO) 7 % (2-9); NEUTROPHILS # (AUTO) 4.57 x10^3/uL (1.8-6.8); NEUTROPHILS % (AUTO) 66 % (42-75)
[2019-02-18] MEDS: SODIUM CHLORIDE FLUSH 10ML SYR IVF SCH ×2 (09:00→20:32)
[2019-02-18] MEDS: BUDESONIDE 0.5 MG/2 ML INHA NPPB SCH ×2 (10:09→19:38)
[2019-02-18 12:05] VITALS: BP 97/63
[2019-02-18] MEDS: ONDANSETRON 2MG/ML, 2ML IV PRN (17:24)
[2019-02-18 19:33] VITALS: BP 115/69
[2019-02-18] MEDS: ALBUTEROL/IPRATROPIUM 2.5MG/0.5MG, 3 ML NPPB SCH (19:38)
[2019-02-19] MEDS: DOXYCYCLINE 100 MG in DEXTROSE 5% 250 ML IV SCH (01:39)
[2019-02-19] MEDS: ENOXAPARIN 40 MG/0.4 ML SQ SCH (01:39)
[2019-02-19 01:50] VITALS: BP 118/72
[2019-02-19] MEDS: BUDESONIDE 0.5 MG/2 ML INHA NPPB SCH ×2 (07:00→20:57)
[2019-02-19] MEDS: ALBUTEROL/IPRATROPIUM 2.5MG/0.5MG, 3 ML NPPB SCH ×4 (07:00→20:00)
[2019-02-19] MEDS: METHADONE 10 MG TABLET PO SCH ×3 (07:58→21:35)
[2019-02-19] MEDS: FAMOTIDINE 20 MG TABLET PO SCH ×2 (07:58→21:35)
[2019-02-19] MEDS: BACLOFEN 10 MG TABLET PO SCH (07:58)
[2019-02-19] MEDS: SODIUM CHLORIDE FLUSH 10ML SYR IVF SCH (08:00)
[2019-02-19 08:01] VITALS: BP 135/72
[2019-02-19] MEDS: INSULIN LISPRO 100 UNITS/ML, PEN SQ-INSULIN SCH (08:01)
[2019-02-19] MEDS: ONDANSETRON 2MG/ML, 2ML IV PRN ×2 (08:12→17:01)
[2019-02-19 15:00] VITALS: BP 98/67
[2019-02-19] MEDS: LACTULOSE 20 GM/30 ML UDC NG PRN (17:03)
[2019-02-19 21:00] VITALS: BP 164/92
[2019-02-20] VITALS (10 sets, daily range): BP systolic 85–121; BP diastolic 45–78
[2019-02-20] MEDS: ALBUTEROL/IPRATROPIUM 2.5MG/0.5MG, 3 ML NPPB SCH ×4 (06:50→20:20)
[2019-02-20] MEDS: BUDESONIDE 0.5 MG/2 ML INHA NPPB SCH ×2 (06:50→20:20)
[2019-02-20] MEDS: TAMSULOSIN 0.4 MG CAP.ER.24H PO SCH (10:17)
[2019-02-20] MEDS: ENOXAPARIN 40 MG/0.4 ML SQ SCH (10:17)
[2019-02-20] MEDS: FAMOTIDINE 20 MG TABLET PO SCH ×2 (10:18→22:11)
[2019-02-20] MEDS: BACLOFEN 10 MG TABLET PO SCH (10:18)
[2019-02-20] MEDS: METHADONE 10 MG TABLET PO SCH ×3 (10:18→22:11)
[2019-02-20] MEDS: ACETAMINOPHEN 325 MG TABLET PO PRN ×3 (10:19→19:25)
[2019-02-20] MEDS ORDERED: ALBUTEROL SULFATE 2.5 MG/3 ML NPPB PRN (13:00)
[2019-02-20] MEDS ORDERED: SODIUM CHLORIDE 0.9%, 250ML IVBOLUS ONE ×2 (17:30→18:30)
[2019-02-21] MEDS: ACETAMINOPHEN 325 MG TABLET PO PRN ×2 (02:05→14:49)
[2019-02-21 02:32] VITALS: BP 128/71
[2019-02-21 06:55] VITALS: BP 108/67
[2019-02-21] MEDS: BUDESONIDE 0.5 MG/2 ML INHA NPPB SCH ×2 (07:45→21:00)
[2019-02-21] MEDS: ALBUTEROL/IPRATROPIUM 2.5MG/0.5MG, 3 ML NPPB SCH ×4 (07:45→20:30)
[2019-02-21 07:52] LABS: ANION GAP 5 mmol/L (5-15); CALCIUM 8.2 mg/dL (8.5-10.1); CHLORIDE 107 mmol/L (98-107); CREATININE 0.74 mg/dL (0.7-1.3)
[2019-02-21 07:59] LABS: MEAN CORPUSCULAR HEMOGLOBIN 24.3 pg (27.5-34.5); MEAN CORPUSCULAR VOLUME 81.2 fL (81-97); MEAN PLATELET VOLUME 9.1 fL (7.4-10.4); PLATELET COUNT 160 x10^3/uL (130-400); RED BLOOD COUNT 4.11 x10^6/uL (4.38-5.82); RED CELL DISTRIBUTION WIDTH 19.1 % (9.4-14.8)
[2019-02-21 08:18] LABS: MD MORPH REVIEW ONLY
[2019-02-21 08:19] LABS: BASOPHILS % (AUTO) 0 % (0-1); EOSINOPHILS # (AUTO) 0.24 x10^3/uL (0-0.4); EOSINOPHILS % (AUTO) 2 % (1-7); LYMPHOCYTES # (AUTO) 0.47 x10^3/uL (1-3.4); LYMPHOCYTES % (AUTO) 4 % (22-44); MONOCYTES # (AUTO) 0.66 x10^3/uL (0.2-0.8); MONOCYTES % (AUTO) 5 % (2-9); NEUTROPHILS # (AUTO) 11.44 x10^3/uL (1.8-6.8); NEUTROPHILS % (AUTO) 89 % (42-75)
[2019-02-21 08:20] LABS: ANISOCYTOSIS 1+; OVALOCYTES 1+
[2019-02-21 08:21] LABS: <PLATELET ESTIMATE> ADEQUATE; <PLT MORPHOLOGY> NORMAL PLT MORPH; MICROCYTOSIS 1+
[2019-02-21] MEDS ORDERED: FLUTICASONE/VILANTEROL 100-25MCG/INH INH SCH (09:00)
[2019-02-21] MEDS: ENOXAPARIN 40 MG/0.4 ML SQ SCH (09:06)
[2019-02-21] MEDS: FLUOXETINE HCL 20 MG CAPSULE PO SCH (09:06)
[2019-02-21] MEDS: FAMOTIDINE 20 MG TABLET PO SCH ×2 (09:06→20:47)
[2019-02-21] MEDS: BACLOFEN 10 MG TABLET PO SCH (09:06)
[2019-02-21] MEDS: METHADONE 10 MG TABLET PO SCH ×2 (09:06→17:41)
[2019-02-21] MEDS: TAMSULOSIN 0.4 MG CAP.ER.24H PO SCH (09:06)
[2019-02-21] MEDS ORDERED: MAGNESIUM CITRATE 300ML ORAL SOL PO ONE (10:00)
[2019-02-21 12:28] VITALS: BP 100/62
[2019-02-21 21:08] VITALS: BP 94/55
[2019-02-22] MEDS: METHADONE 10 MG TABLET PO SCH ×4 (00:59→23:18)
[2019-02-22 01:08] VITALS: BP 106/67
[2019-02-22] MEDS: BUDESONIDE 0.5 MG/2 ML INHA NPPB SCH ×2 (06:50→20:06)
[2019-02-22] MEDS: ALBUTEROL/IPRATROPIUM 2.5MG/0.5MG, 3 ML NPPB SCH ×4 (06:50→20:06)
[2019-02-22 07:24] VITALS: BP 118/74
[2019-02-22] MEDS: LACTULOSE 20 GM/30 ML UDC NG PRN (08:01)
[2019-02-22] MEDS: FLUOXETINE HCL 20 MG CAPSULE PO SCH (08:01)
[2019-02-22] MEDS: FAMOTIDINE 20 MG TABLET PO SCH ×2 (08:01→19:44)
[2019-02-22] MEDS: ENOXAPARIN 40 MG/0.4 ML SQ SCH (08:01)
[2019-02-22] MEDS: BACLOFEN 10 MG TABLET PO SCH (08:01)
[2019-02-22] MEDS: TAMSULOSIN 0.4 MG CAP.ER.24H PO SCH (08:01)
[2019-02-22] MEDS: ONDANSETRON 2MG/ML, 2ML IV PRN (08:02)
[2019-02-22] MEDS ORDERED: METHYLNALTREXONE 12 MG/0.6 ML SQ SCH (10:30)
[2019-02-22 13:29] VITALS: BP 100/62
[2019-02-22] MEDS ORDERED: ONDANSETRON ODT 4 MG ONE (15:46)
[2019-02-22] MEDS: ONDANSETRON ODT 4 MG PO PRN (15:48)
[2019-02-22 19:36] VITALS: BP 110/56
[2019-02-23 00:34] VITALS: BP 114/73
[2019-02-23] MEDS: ONDANSETRON ODT 4 MG PO PRN ×2 (01:33→17:51)
[2019-02-23 08:18] VITALS: BP 129/75
[2019-02-23] MEDS: BUDESONIDE 0.5 MG/2 ML INHA NPPB SCH (08:45)
[2019-02-23] MEDS: ALBUTEROL/IPRATROPIUM 2.5MG/0.5MG, 3 ML NPPB SCH ×3 (08:45→14:37)
[2019-02-23 09:16] LABS: CHLORIDE 105 mmol/L (98-107)
[2019-02-23] MEDS: FAMOTIDINE 20 MG TABLET PO SCH (09:22)
[2019-02-23] MEDS: BACLOFEN 10 MG TABLET PO SCH (09:22)
[2019-02-23] MEDS: TAMSULOSIN 0.4 MG CAP.ER.24H PO SCH (09:23)
[2019-02-23] MEDS: METHADONE 10 MG TABLET PO SCH ×2 (09:23→15:20)
[2019-02-23] MEDS: ENOXAPARIN 40 MG/0.4 ML SQ SCH (09:23)
[2019-02-23] MEDS: FLUOXETINE HCL 20 MG CAPSULE PO SCH (09:23)
[2019-02-23 09:37] LABS: MEAN CORPUSCULAR HEMOGLOBIN 24.6 pg (27.5-34.5); MEAN CORPUSCULAR HGB CONC 30.3 g/dL (33.2-36.2); MEAN CORPUSCULAR VOLUME 80.9 fL (81-97); MEAN PLATELET VOLUME 9.2 fL (7.4-10.4); PLATELET COUNT 202 x10^3/uL (130-400); RED BLOOD COUNT 3.78 x10^6/uL (4.38-5.82); RED CELL DISTRIBUTION WIDTH 19.6 % (9.4-14.8)
[2019-02-23 09:52] LABS: BASOPHILS # (AUTO) 0.01 x10^3/uL (0-0.1); BASOPHILS % (AUTO) 0 % (0-1); EOSINOPHILS # (AUTO) 1.22 x10^3/uL (0-0.4); EOSINOPHILS % (AUTO) 17 % (1-7); LYMPHOCYTES % (AUTO) 15 % (22-44); MD SCAN; MONOCYTES # (AUTO) 0.74 x10^3/uL (0.2-0.8); MONOCYTES % (AUTO) 10 % (2-9); NEUTROPHILS # (AUTO) 4.23 x10^3/uL (1.8-6.8); NEUTROPHILS % (AUTO) 58 % (42-75)
[2019-02-23 10:39] LABS: ALANINE AMINOTRANSFERASE 25 U/L (12-78)
[2019-02-23 10:46] LABS: ALBUMIN 2.2 g/dL (3.4-5.0); ANION GAP 5 mmol/L (5-15); TOTAL PROTEIN 5.3 g/dL (6.4-8.2)
[2019-02-23 10:49] LABS: ALKALINE PHOSPHATASE 84 U/L (45-117); BILIRUBIN,TOTAL 0.3 mg/dL (0.2-1.0); CALCIUM 8.9 mg/dL (8.5-10.1); CREATININE 0.65 mg/dL (0.7-1.3)
[2019-02-23 13:23] VITALS: BP 132/78
[2019-02-23 13:46] VITALS: BP 96/57
[2019-02-23] MEDS ORDERED: BISA10SU54 PR (15:51)
[2019-02-23] MEDS ORDERED: LACT20SO13 NG (15:51)
[2019-02-23] MEDS ORDERED: SENN-177 NG (15:51)
[2019-02-23 15:52] VITALS: BP 106/60
== END 2019-02-23 18:06 | DRG 208 ==
LOC: ED 21:07 → EDIP 22:43 → CCU 23:42 → 3NW 02-17 09:59
PROVIDERS: ADMIT Family Medicine; ATTEND Family Medicine
PROC: 0BH17EZ Insertion of Endotracheal Airway into Trachea, Via Natural or Artificial Opening (ICD-10-PCS; principal; 2019-02-14)
PROC: 5A1945Z Respiratory Ventilation, 24-96 Consecutive Hours (ICD-10-PCS; 2019-02-14)
PROC: 0T9B70Z Drainage of Bladder with Drainage Device, Via Natural or Artificial Opening (ICD-10-PCS; 2019-02-15)
DX: J96.21 Acute and chronic respiratory failure with hypoxia (principal); J44.1 Chronic obstructive pulmonary disease with (acute) exacerbation; N39.0 Urinary tract infection, site not specified; R64 Cachexia; Z99.11 Dependence on respirator [ventilator] status; E27.40 Unspecified adrenocortical insufficiency; J44.0 Chronic obstructive pulmonary disease with (acute) lower respiratory infection; J96.22 Acute and chronic respiratory failure with hypercapnia; D50.9 Iron deficiency anemia, unspecified; E11.22 Type 2 diabetes mellitus with diabetic chronic kidney disease; E88.09 Other disorders of plasma-protein metabolism, not elsewhere classified; F32.9 Major depressive disorder, single episode, unspecified; G89.4 Chronic pain syndrome; I50.9 Heart failure, unspecified; J20.9 Acute bronchitis, unspecified; K21.9 Gastro-esophageal reflux disease without esophagitis; K59.00 Constipation, unspecified; M45.9 Ankylosing spondylitis of unspecified sites in spine; N18.9 Chronic kidney disease, unspecified; N40.0 Benign prostatic hyperplasia without lower urinary tract symptoms; Z72.0 Tobacco use; Z79.52 Long term (current) use of systemic steroids; Z79.891 Long term (current) use of opiate analgesic; Z99.81 Dependence on supplemental oxygen; Z68.26 Body mass index [BMI] 26.0-26.9, adult
CPT/HCPCS: 36415; 36600; 70450; 71045; 74018; 80048; 80053; 81001; 82803; 82962; 83605; 83735; 83880; 84145; 84478; 84484; 85025; 87040; 87070; 87081; 87086; 87106; 87205; 93005; 93306; 93970; 94003; 94640; 96374; 99291; G0378; J0696; J1650; J2250; J2405; J2704; J3010; J7060; J7620; J7626; P9045; Q0162; J1720; J1815; J2930; J3490; J7030; J7050

== ENCOUNTER 2019-05-06 09:46 | Inpatient (IN) | payer MEDICARE ==
[~2019-05-06] VITALS: Ht 175.3 cm; Wt 73.5 kg
[~2019-05-06 09:46] MED LIST changes: +BISA10SU54 PR; +LACT20SO13 NG; -PROPOFOL 10 MG/ML, 100ML IV ONE; +SENN-177 NG
--- NOTE | 2019-05-06 10:00 | NUR ---
PT FROM HOME. PER EMS NOTED CONFUSION DEVELOPING LAST NIGHT. PT STATES NAME ONLY, FOLLOWS COMMANDS. C/O BACK PAIN. NOTED TO BE INCONTINENT OF URINE ON ARRIVAL. PT AT ONE PT CERTAIN SOMEONE BEHIND HIM WHEN NO ONE ELSE IN THE ROOM.
[2019-05-06 10:45] LABS: CULTURE INDICATED? YES; MICROSCOPIC INDICATED
[2019-05-06 10:46] LABS: MEAN CORPUSCULAR HEMOGLOBIN 25.7 pg (27.5-34.5); MEAN CORPUSCULAR VOLUME 82.8 fL (81-97); MEAN PLATELET VOLUME 8.9 fL (7.4-10.4); PLATELET COUNT 268 x10^3/uL (130-400); RED BLOOD COUNT 4.77 x10^6/uL (4.38-5.82); RED CELL DISTRIBUTION WIDTH 20.8 % (9.4-14.8)
[2019-05-06 10:54] LABS: ALBUMIN 3.1 g/dL (3.4-5.0); CALCIUM 8.5 mg/dL (8.5-10.1); SALICYLATE LEVEL 3.5 mg/dL (2.8-20.0)
[2019-05-06 10:57] LABS: ALANINE AMINOTRANSFERASE 15 U/L (12-78); ALKALINE PHOSPHATASE 132 U/L (45-117); BILIRUBIN,TOTAL 0.8 mg/dL (0.2-1.0); CHLORIDE 118 mmol/L (98-107); CREATININE 2.91 mg/dL (0.7-1.3); TOTAL PROTEIN 6.7 g/dL (6.4-8.2)
--- NOTE | 2019-05-06 11:00 | NUR ---
AT BEDSIDE. CONTINUE TO MONITOR
[2019-05-06 11:04] LABS: ANION GAP 5 mmol/L (5-15)
[2019-05-06 11:10] LABS: BASOPHILS # (AUTO) 0.03 x10^3/uL (0-0.1); BASOPHILS % (AUTO) 0 % (0-1); EOSINOPHILS % (AUTO) 0 % (1-7); LYMPHOCYTES # (AUTO) 0.85 x10^3/uL (1-3.4); LYMPHOCYTES % (AUTO) 12 % (22-44); MD SCAN; MONOCYTES # (AUTO) 0.32 x10^3/uL (0.2-0.8); MONOCYTES % (AUTO) 5 % (2-9); NEUTROPHILS # (AUTO) 5.66 x10^3/uL (1.8-6.8); NEUTROPHILS % (AUTO) 83 % (42-75)
[2019-05-06] MEDS ORDERED: CEFTRIAXONE PMX 1GM/50ML 50 ML IVPB ONE (11:30)
[2019-05-06] MEDS ORDERED: SODIUM CHLORIDE 0.9% 1,000ML IVBOLUS ONE (11:30)
--- NOTE | 2019-05-06 11:43 | NUR ---
PT AND AWARE OF INTENTION TO ADMIT. LAB AT BEDSIDE OBTAINING BLOOD CULTURES. PT REMAINS CONFUSED
[2019-05-06] MEDS ORDERED: CEFTRIAXONE PMX 1GM/50ML 50 ML ONE (11:46)
--- NOTE | 2019-05-06 12:04 | NUR ---
BREAK RN-ROCPHINE IV STARTED. VS UPDATED AND WNL. PT RESTING WITH NO COMPLAINTS. SIDE RAILS UP X 2 FOR SAFETY. CALL BUTTON IN LAP.
[2019-05-06] MEDS ORDERED: HYDROmorphone 2 MG/ML, 1ML IVPush PRN (12:30)
[2019-05-06] MEDS ORDERED: GABAPENTIN 300 MG CAPSULE PO PRN (12:30)
[2019-05-06] MEDS ORDERED: ALBUTEROL SULFATE 2.5 MG/3 ML NPPB PRN ×2 (12:30→15:00)
[2019-05-06] MEDS ORDERED: hydrALAzine 20 MG/ML, 1ML IVPush PRN (12:30)
--- NOTE | 2019-05-06 12:31 | NUR ---
SBAR TELEPHONE HAND-OFF REPORT GIVEN TO LELO CASH.
--- NOTE | 2019-05-06 12:46 | NUR ---
OFF FLOOR TO MRI
--- NOTE | 2019-05-06 13:09 | NUR ---
UPON RETURN FROM MRI PT TRANSPORTED TO FLOOR
[2019-05-06 13:32] VITALS: BP 143/83
[2019-05-06] MEDS: SODIUM CHLORIDE 0.9% 1,000 ML IV SCH ×2 (14:45→22:58)
[2019-05-06] MEDS: ONDANSETRON 2MG/ML, 2ML IVPush PRN (14:45)
[2019-05-06] MEDS: HEPARIN 5,000 UNITS/ML, 1ML SQ SCH ×2 (14:46→22:58)
[2019-05-06 18:47] LABS: AMPHETAMINE SCREEN, URINE Negative (Negative); BARBITURATE SCREEN, URINE Negative (Negative); BENZODIAZEPINE SCREEN, URINE Negative (Negative); CANNABINOID SCREEN, URINE Negative (Negative); COCAINE SCREEN, URINE Negative (Negative); METHADONE SCREEN, URINE Positive (Negative); OPIATE SCREEN, URINE Positive (Negative)
[2019-05-06] MEDS: HYDROmorphone 2MG TABLET PO PRN (18:55)
[2019-05-06 20:36] VITALS: BP 154/86
[2019-05-07] MEDS: ONDANSETRON 2MG/ML, 2ML IVPush PRN ×2 (00:16→23:08)
[2019-05-07 00:28] VITALS: BP 136/75
[2019-05-07] MEDS: ACETAMINOPHEN 325 MG TABLET PO PRN ×3 (02:07→21:41)
[2019-05-07] MEDS: HYDROmorphone 2MG TABLET PO PRN ×4 (02:08→21:40)
[2019-05-07 05:36] LABS: BASOPHILS # (AUTO) 0.05 x10^3/uL (0-0.1); BASOPHILS % (AUTO) 1 % (0-1); EOSINOPHILS # (AUTO) 0.29 x10^3/uL (0-0.4); EOSINOPHILS % (AUTO) 5 % (1-7); LYMPHOCYTES % (AUTO) 17 % (22-44); MD NO; MEAN CORPUSCULAR HEMOGLOBIN 25.5 pg (27.5-34.5); MEAN CORPUSCULAR HGB CONC 31.4 g/dL (33.2-36.2); MEAN CORPUSCULAR VOLUME 81.1 fL (81-97); MEAN PLATELET VOLUME 8.9 fL (7.4-10.4); MONOCYTES % (AUTO) 9 % (2-9); NEUTROPHILS # (AUTO) 3.96 x10^3/uL (1.8-6.8); NEUTROPHILS % (AUTO) 68 % (42-75); PLATELET COUNT 211 x10^3/uL (130-400); RED BLOOD COUNT 3.97 x10^6/uL (4.38-5.82); RED CELL DISTRIBUTION WIDTH 20.6 % (9.4-14.8)
[2019-05-07 05:48] LABS: ANION GAP 5 mmol/L (5-15); CALCIUM 8.1 mg/dL (8.5-10.1); CHLORIDE 119 mmol/L (98-107)
[2019-05-07 05:59] LABS: CREATININE 2.32 mg/dL (0.7-1.3)
[2019-05-07] MEDS: HEPARIN 5,000 UNITS/ML, 1ML SQ SCH ×3 (06:41→23:05)
[2019-05-07] MEDS: SODIUM CHLORIDE 0.9% 1,000 ML IV SCH ×3 (06:41→23:05)
[2019-05-07 07:01] VITALS: BP 148/78
[2019-05-07] MEDS: FLUOXETINE HCL 20 MG CAPSULE PO SCH (08:00)
[2019-05-07] MEDS: OMEPRAZOLE 20 MG CAPSULE.DR PO SCH (08:00)
[2019-05-07] MEDS: TAMSULOSIN 0.4 MG CAP.ER.24H PO SCH (08:00)
[2019-05-07] MEDS: CEFTRIAXONE PMX 1GM/50ML 50 ML IV SCH (11:57)
[2019-05-07 12:45] VITALS: BP 123/67
[2019-05-07 19:51] VITALS: BP 121/72
[2019-05-08] MEDS: ACETAMINOPHEN 325 MG TABLET PO PRN ×3 (01:35→22:53)
[2019-05-08 01:58] VITALS: BP 129/79
[2019-05-08] MEDS: HYDROmorphone 2MG TABLET PO PRN ×3 (04:07→19:33)
[2019-05-08 05:25] LABS: BASOPHILS # (AUTO) 0.05 x10^3/uL (0-0.1); BASOPHILS % (AUTO) 1 % (0-1); EOSINOPHILS # (AUTO) 0.66 x10^3/uL (0-0.4); EOSINOPHILS % (AUTO) 12 % (1-7); LYMPHOCYTES # (AUTO) 1.34 x10^3/uL (1-3.4); LYMPHOCYTES % (AUTO) 25 % (22-44); MD NO; MEAN CORPUSCULAR HEMOGLOBIN 25.8 pg (27.5-34.5); MEAN CORPUSCULAR HGB CONC 31.4 g/dL (33.2-36.2); MEAN CORPUSCULAR VOLUME 82.1 fL (81-97); MEAN PLATELET VOLUME 9.3 fL (7.4-10.4); MONOCYTES % (AUTO) 9 % (2-9); NEUTROPHILS # (AUTO) 2.89 x10^3/uL (1.8-6.8); NEUTROPHILS % (AUTO) 53 % (42-75); PLATELET COUNT 197 x10^3/uL (130-400); RED BLOOD COUNT 4.04 x10^6/uL (4.38-5.82); RED CELL DISTRIBUTION WIDTH 20.7 % (9.4-14.8)
[2019-05-08 05:36] LABS: ALANINE AMINOTRANSFERASE 14 U/L (12-78); ALBUMIN 2.7 g/dL (3.4-5.0); ANION GAP 4 mmol/L (5-15); CALCIUM 7.8 mg/dL (8.5-10.1); CHLORIDE 115 mmol/L (98-107); CREATININE 1.79 mg/dL (0.7-1.3)
[2019-05-08 05:38] LABS: ALKALINE PHOSPHATASE 99 U/L (45-117); BILIRUBIN,TOTAL 0.2 mg/dL (0.2-1.0); TOTAL PROTEIN 5.6 g/dL (6.4-8.2)
[2019-05-08] MEDS: HEPARIN 5,000 UNITS/ML, 1ML SQ SCH ×3 (06:40→22:53)
[2019-05-08] MEDS: SODIUM CHLORIDE 0.9% 1,000 ML IV SCH ×3 (06:41→22:53)
[2019-05-08 07:25] VITALS: BP 135/74
[2019-05-08] MEDS: OMEPRAZOLE 20 MG CAPSULE.DR PO SCH (07:32)
[2019-05-08] MEDS: TAMSULOSIN 0.4 MG CAP.ER.24H PO SCH (07:32)
[2019-05-08] MEDS: FLUOXETINE HCL 20 MG CAPSULE PO SCH (07:32)
[2019-05-08] MEDS: ONDANSETRON 2MG/ML, 2ML IVPush PRN ×2 (07:37→19:39)
[2019-05-08] MEDS: CEFTRIAXONE PMX 1GM/50ML 50 ML IV SCH (11:54)
[2019-05-08 12:35] VITALS: BP 122/68
[2019-05-08 19:55] VITALS: BP 134/85
[2019-05-09 00:05] VITALS: BP 126/80
[2019-05-09] MEDS: HYDROmorphone 2MG TABLET PO PRN ×2 (02:19→08:12)
[2019-05-09 06:02] LABS: BASOPHILS # (AUTO) 0.03 x10^3/uL (0-0.1); BASOPHILS % (AUTO) 1 % (0-1); CHLORIDE 116 mmol/L (98-107); EOSINOPHILS # (AUTO) 0.62 x10^3/uL (0-0.4); EOSINOPHILS % (AUTO) 11 % (1-7); LYMPHOCYTES # (AUTO) 1.36 x10^3/uL (1-3.4); LYMPHOCYTES % (AUTO) 25 % (22-44); MD NO; MEAN CORPUSCULAR HGB CONC 31.4 g/dL (33.2-36.2); MEAN CORPUSCULAR VOLUME 82.8 fL (81-97); MEAN PLATELET VOLUME 9.7 fL (7.4-10.4); MONOCYTES # (AUTO) 0.46 x10^3/uL (0.2-0.8); MONOCYTES % (AUTO) 8 % (2-9); NEUTROPHILS # (AUTO) 3.05 x10^3/uL (1.8-6.8); NEUTROPHILS % (AUTO) 55 % (42-75); PLATELET COUNT 184 x10^3/uL (130-400); RED BLOOD COUNT 3.94 x10^6/uL (4.38-5.82); RED CELL DISTRIBUTION WIDTH 21.3 % (9.4-14.8)
[2019-05-09 06:20] LABS: ALANINE AMINOTRANSFERASE 14 U/L (12-78); ALBUMIN 2.6 g/dL (3.4-5.0); ALKALINE PHOSPHATASE 99 U/L (45-117); ANION GAP 4 mmol/L (5-15); BILIRUBIN,TOTAL 0.5 mg/dL (0.2-1.0); CREATININE 1.42 mg/dL (0.7-1.3); TOTAL PROTEIN 5.6 g/dL (6.4-8.2)
[2019-05-09 07:00] VITALS: BP 134/78
[2019-05-09] MEDS: SODIUM CHLORIDE 0.9% 1,000 ML IV SCH (07:11)
[2019-05-09] MEDS: HEPARIN 5,000 UNITS/ML, 1ML SQ SCH (07:11)
[2019-05-09] MEDS: FLUOXETINE HCL 20 MG CAPSULE PO SCH (08:11)
[2019-05-09] MEDS: TAMSULOSIN 0.4 MG CAP.ER.24H PO SCH (08:12)
[2019-05-09] MEDS: OMEPRAZOLE 20 MG CAPSULE.DR PO SCH (08:12)
[2019-05-09] MEDS ORDERED: PHEN100T90 PO (09:24)
[2019-05-09] MEDS: CEFTRIAXONE PMX 1GM/50ML 50 ML IV SCH (10:46)
[2019-07-02] MEDS ORDERED: ALBU8.5H8 INH (15:27)
[2019-07-02] MEDS ORDERED: DOXY100T10 PO (15:27)
[2019-07-02] MEDS ORDERED: BUDE0.5A INH (15:27)
[2019-07-02] MEDS ORDERED: PRED5TAB PO (15:27)
[2019-07-02] MEDS ORDERED: IPRA3AMP30 NPPB (15:27)
== END 2019-05-09 12:32 | disposition home or self-care (01) | DRG 917 ==
LOC: ED 10:19 → EDIP 11:45 → 4NOR 13:16 → DCLOUNGE 05-09 12:22
PROVIDERS: ADMIT Internal Medicine; ATTEND Internal Medicine
DX: T40.601A Poisoning by unspecified narcotics, accidental (unintentional), initial encounter (principal); N17.0 Acute kidney failure with tubular necrosis; G92 Toxic encephalopathy; E87.0 Hyperosmolality and hypernatremia; F11.20 Opioid dependence, uncomplicated; J96.11 Chronic respiratory failure with hypoxia; K51.90 Ulcerative colitis, unspecified, without complications; Z88.2 Allergy status to sulfonamides; Z91.018 Allergy to other foods; Z91.048 Other nonmedicinal substance allergy status; D64.9 Anemia, unspecified; E11.9 Type 2 diabetes mellitus without complications; E86.0 Dehydration; E86.1 Hypovolemia; F32.9 Major depressive disorder, single episode, unspecified; G89.29 Other chronic pain; I50.9 Heart failure, unspecified; J44.9 Chronic obstructive pulmonary disease, unspecified; K21.9 Gastro-esophageal reflux disease without esophagitis; N28.1 Cyst of kidney, acquired; N30.90 Cystitis, unspecified without hematuria; N40.0 Benign prostatic hyperplasia without lower urinary tract symptoms; Z87.442 Personal history of urinary calculi; Z87.891 Personal history of nicotine dependence; Z99.81 Dependence on supplemental oxygen; Y92.89 Other specified places as the place of occurrence of the external cause
CPT/HCPCS: 36415; 70450; 70551; 71045; 76770; 80048; 80053; 80307; 81001; 82140; 83605; 84443; 85025; 87040; 87086; 93005; 99291; G0378; J0696; J1644; J2405; J7030

== ENCOUNTER 2020-03-01 19:49 | Inpatient (IN) | payer MEDICARE ==
[~2020-03-01] VITALS: Ht 170.2 cm; Wt 69.6 kg
[~2020-03-01 19:49] MED LIST changes: +ALBU8.5H8 INH; +AZIT500T10 PO; -AZIT500T5 PO; +BUDE0.5A INH; +DOXY100T23 PO; +IPRA3AMP30 NPPB; +PHEN100T90 PO; +PRED5TAB PO
[2020-03-01] MEDS ORDERED: SODIUM CHLORIDE FLUSH 10ML SYR IVF ONE (20:30)
[2020-03-01 20:53] LABS: BASOPHILS # (AUTO) 0.01 x10^3/uL (0-0.1); BASOPHILS % (AUTO) 0 % (0-1); EOSINOPHILS # (AUTO) 0.05 x10^3/uL (0-0.4); EOSINOPHILS % (AUTO) 0 % (1-7); LYMPHOCYTES # (AUTO) 0.65 x10^3/uL (1-3.4); LYMPHOCYTES % (AUTO) 5 % (22-44); MD NO; MEAN CORPUSCULAR HEMOGLOBIN 27.7 pg (27.5-34.5); MEAN CORPUSCULAR HGB CONC 31.7 g/dL (33.2-36.2); MEAN CORPUSCULAR VOLUME 87.5 fL (81-97); MEAN PLATELET VOLUME 9.4 fL (7.4-10.4); MONOCYTES # (AUTO) 0.26 x10^3/uL (0.2-0.8); MONOCYTES % (AUTO) 2 % (2-9); NEUTROPHILS % (AUTO) 92 % (42-75); PLATELET COUNT 200 x10^3/uL (130-400); RED BLOOD COUNT 5.29 x10^6/uL (4.38-5.82)
--- NOTE | 2020-03-01 20:53 | NUR ---
Bladder scan showed 118 in bladder.
[2020-03-01 20:59] LABS: ALANINE AMINOTRANSFERASE 21 U/L (12-78); ALBUMIN 3.2 g/dL (3.4-5.0); ANION GAP 5 mmol/L (5-15); CALCIUM 8.5 mg/dL (8.5-10.1); CHLORIDE 111 mmol/L (98-107)
[2020-03-01 21:02] LABS: ALKALINE PHOSPHATASE 97 U/L (45-117); BILIRUBIN,TOTAL 0.6 mg/dL (0.2-1.0); CREATININE 1.35 mg/dL (0.7-1.3); TOTAL PROTEIN 6.8 g/dL (6.4-8.2)
--- NOTE | 2020-03-01 21:18 | NUR ---
CT DELAY, PT IS GETTING CATH.
--- NOTE | 2020-03-01 21:28 | NUR ---
Oliver inserted per md order. Pt aware of situation. Transported to ct following procedure Addendum: 03/01/20 at 2130 by IBETH Pt lma removed prior to transport to ct
[2020-03-01 21:36] LABS: MICROSCOPIC INDICATED
[2020-03-01 21:52] LABS: INTERNATIONAL NORMALIZED RATIO 1.02 (0.93-1.1); PROTHROMBIN TIME 10.8 Seconds (9.6-11.5)
[2020-03-01 22:00] VITALS: BP 147/74
[2020-03-01] MEDS ORDERED: BISACODYL 10 MG SUPP PR PRN (22:00)
[2020-03-01] MEDS ORDERED: ACETAMINOPHEN 325 MG TABLET PO PRN (22:00)
[2020-03-01] MEDS: PLEASE ENTER HEIGHT AND WEIGHT MC SCH (22:00)
[2020-03-01] MEDS ORDERED: TEMPLATE NON-FORMULARY MED. (Albuterol Sulfate (Proair Hfa) 1 PUFF) INH PRN (22:00)
[2020-03-01] MEDS ORDERED: ONDANSETRON 2MG/ML, 2ML IVPush PRN (22:00)
[2020-03-01] MEDS: HEPARIN 5,000 UNITS/ML, 1ML SQ SCH (23:12)
[2020-03-01] MEDS: morphine SULFATE 10 MG/ML, 1ML IVPush PRN (23:13)
[2020-03-01] MEDS: METHADONE 10 MG TABLET PO SCH (23:13)
[2020-03-02] MEDS: CEFTRIAXONE PMX 1GM/50ML 50 ML IV SCH ×2 (00:52→23:58)
[2020-03-02] MEDS: SODIUM CHLORIDE 0.9% 1,000 ML IV SCH ×3 (00:52→21:41)
[2020-03-02] MEDS: BUDESONIDE 0.5 MG/2 ML INHA INH SCH ×3 (00:59→10:29)
[2020-03-02 02:50] VITALS: BP 151/82
[2020-03-02] MEDS: morphine SULFATE 10 MG/ML, 1ML IVPush PRN ×5 (03:40→21:26)
[2020-03-02 05:32] LABS: BASOPHILS # (AUTO) 0.03 x10^3/uL (0-0.1); BASOPHILS % (AUTO) 0 % (0-1); EOSINOPHILS # (AUTO) 0.07 x10^3/uL (0-0.4); EOSINOPHILS % (AUTO) 1 % (1-7); LYMPHOCYTES # (AUTO) 0.41 x10^3/uL (1-3.4); LYMPHOCYTES % (AUTO) 5 % (22-44); MD NO; MEAN CORPUSCULAR HEMOGLOBIN 27.7 pg (27.5-34.5); MEAN CORPUSCULAR HGB CONC 31.6 g/dL (33.2-36.2); MEAN CORPUSCULAR VOLUME 87.8 fL (81-97); MEAN PLATELET VOLUME 9.3 fL (7.4-10.4); MONOCYTES # (AUTO) 0.59 x10^3/uL (0.2-0.8); MONOCYTES % (AUTO) 7 % (2-9); NEUTROPHILS # (AUTO) 7.51 x10^3/uL (1.8-6.8); NEUTROPHILS % (AUTO) 87 % (42-75); PLATELET COUNT 166 x10^3/uL (130-400); RED BLOOD COUNT 4.52 x10^6/uL (4.38-5.82); RED CELL DISTRIBUTION WIDTH 18.4 % (9.4-14.8)
[2020-03-02] MEDS: PLEASE ENTER HEIGHT AND WEIGHT MC SCH (05:32)
[2020-03-02] MEDS: HEPARIN 5,000 UNITS/ML, 1ML SQ SCH ×3 (05:33→21:41)
[2020-03-02 05:40] LABS: CALCIUM 8.3 mg/dL (8.5-10.1); CHLORIDE 114 mmol/L (98-107)
[2020-03-02 05:42] LABS: ANION GAP 4 mmol/L (5-15); CREATININE 0.89 mg/dL (0.7-1.3)
[2020-03-02 06:44] VITALS: BP 156/84
[2020-03-02] MEDS: ALBUTEROL/IPRATROPIUM 2.5MG/0.5MG, 3 ML NPPB SCH ×4 (07:00→21:52)
[2020-03-02] MEDS: FLUOXETINE HCL 20 MG CAPSULE PO SCH (09:03)
[2020-03-02] MEDS: METHADONE 10 MG TABLET PO SCH ×3 (09:04→21:40)
[2020-03-02] MEDS: OMEPRAZOLE 20 MG CAPSULE.DR PO SCH (09:04)
[2020-03-02 12:08] VITALS: BP 109/66
[2020-03-02] MEDS ORDERED: BUPIVACAINE/PF 0.5% ONE (15:26)
[2020-03-02] MEDS ORDERED: SODIUM CHLORIDE 0.9%, 250ML IVBOLUS ONE (16:00)
[2020-03-02] MEDS ORDERED: MIDAZOLAM 1 MG/ML, 2ML ONE (16:55)
[2020-03-02] MEDS ORDERED: FENTANYL PF 250 MCG/5ML ONE (16:55)
[2020-03-02] MEDS ORDERED: ROCURONIUM 10 MG/ML,10ML ONE (17:12)
[2020-03-02] MEDS ORDERED: CEFAZOLIN 1,000 MG ONE (17:12)
[2020-03-02] MEDS ORDERED: PHENYLEPHRINE 10 MG/ML ONE (17:12)
[2020-03-02] MEDS ORDERED: PROPOFOL 10 MG/ML, 20ML ONE (18:13)
[2020-03-02] MEDS ORDERED: EPHEDRINE 50 MG/ML, 1ML ONE (18:13)
[2020-03-02] MEDS ORDERED: DEXAMETHASONE 4 MG/ML, 1ML ONE (18:14)
[2020-03-02] MEDS ORDERED: SUCCINYLCHOLINE 20 MG/ML, 10ML ONE (18:14)
[2020-03-02] MEDS ORDERED: ONDANSETRON 2MG/ML, 2ML ONE (18:14)
[2020-03-02] MEDS ORDERED: OXYcodone 5 MG/5 ML ORAL.SOL UDC PO PRN (18:30)
[2020-03-02] MEDS ORDERED: ONDANSETRON 2MG/ML, 2ML IVPush PRN (18:30)
[2020-03-02] MEDS ORDERED: hydrALAzine 20 MG/ML, 1ML IV PRN (18:30)
[2020-03-02] MEDS ORDERED: LABETALOL 5MG/ML, 20ML IV PRN (18:30)
[2020-03-02] MEDS ORDERED: PROMETHAZINE 25 MG/ML, 1ML IVPush PRN (18:30)
[2020-03-02] MEDS ORDERED: HYDROmorphone 2 MG/ML, 1ML ONE (18:38)
[2020-03-02] MEDS ORDERED: OXYcodone 5 MG/5 ML ORAL.SOL UDC ONE (18:38)
[2020-03-02] MEDS ORDERED: FENTANYL PF 100 MCG/2ML ONE (18:38)
[2020-03-02] MEDS: FENTANYL PF 100 MCG/2ML IV PRN ×2 (18:45→18:57)
[2020-03-02] MEDS: HYDROmorphone 1 MG/ML, 1ML INJ IVPush PRN ×2 (18:47→19:01)
[2020-03-02] MEDS ORDERED: MEPERIDINE/PF 25MG/ML,1ML ONE (18:51)
[2020-03-02 19:50] VITALS: BP 108/68
[2020-03-03] MEDS: METHOCARBAMOL 500 MG TABLET PO PRN ×4 (00:26→23:26)
[2020-03-03] MEDS: morphine SULFATE 10 MG/ML, 1ML IVPush PRN ×4 (00:28→15:15)
[2020-03-03 00:35] VITALS: BP 102/66
[2020-03-03 03:41] VITALS: BP 108/68
[2020-03-03] MEDS: HEPARIN 5,000 UNITS/ML, 1ML SQ SCH ×3 (05:31→23:26)
[2020-03-03 05:42] LABS: ANION GAP 2 mmol/L (5-15); CALCIUM 7.9 mg/dL (8.5-10.1); CHLORIDE 116 mmol/L (98-107); CREATININE 0.82 mg/dL (0.7-1.3)
[2020-03-03 05:54] LABS: BASOPHILS % (AUTO) 0 % (0-1); EOSINOPHILS % (AUTO) 0 % (1-7); LYMPHOCYTES # (AUTO) 0.64 x10^3/uL (1-3.4); LYMPHOCYTES % (AUTO) 8 % (22-44); MD NO; MEAN CORPUSCULAR HEMOGLOBIN 27.9 pg (27.5-34.5); MEAN CORPUSCULAR HGB CONC 31.7 g/dL (33.2-36.2); MEAN PLATELET VOLUME 9.3 fL (7.4-10.4); MONOCYTES % (AUTO) 8 % (2-9); NEUTROPHILS # (AUTO) 6.57 x10^3/uL (1.8-6.8); NEUTROPHILS % (AUTO) 84 % (42-75); PLATELET COUNT 157 x10^3/uL (130-400); RED BLOOD COUNT 3.86 x10^6/uL (4.38-5.82); RED CELL DISTRIBUTION WIDTH 18.9 % (9.4-14.8)
[2020-03-03 06:40] VITALS: BP 106/67
[2020-03-03] MEDS: ALBUTEROL/IPRATROPIUM 2.5MG/0.5MG, 3 ML NPPB SCH ×4 (07:00→19:18)
[2020-03-03] MEDS: FLUOXETINE HCL 20 MG CAPSULE PO SCH (08:23)
[2020-03-03] MEDS: SODIUM CHLORIDE 0.9% 1,000 ML IV SCH ×2 (08:23→17:40)
[2020-03-03] MEDS: METHADONE 10 MG TABLET PO SCH ×3 (08:23→21:25)
[2020-03-03] MEDS: OMEPRAZOLE 20 MG CAPSULE.DR PO SCH (08:23)
[2020-03-03] MEDS ORDERED: ELLIPTA INH SCH (09:00)
[2020-03-03] MEDS: BUDESONIDE 0.5 MG/2 ML INHA INH SCH ×2 (09:00→19:18)
[2020-03-03] MEDS: OXYcodone IR 5MG TABLET PO PRN ×2 (11:48→17:40)
[2020-03-03] MEDS ORDERED: FLUCONAZOLE 50 MG TABLET PO ONE (13:00)
[2020-03-03 13:05] VITALS: BP 98/65
[2020-03-03 18:31] VITALS: BP 99/64
[2020-03-04] MEDS: CEFTRIAXONE PMX 1GM/50ML 50 ML IV SCH (00:10)
[2020-03-04 00:19] VITALS: BP 106/69
[2020-03-04] MEDS: OXYcodone IR 5MG TABLET PO PRN ×3 (02:05→17:22)
[2020-03-04] MEDS: SODIUM CHLORIDE 0.9% 1,000 ML IV SCH ×2 (04:31→16:00)
[2020-03-04] MEDS: ALBUTEROL/IPRATROPIUM 2.5MG/0.5MG, 3 ML NPPB SCH (07:00)
[2020-03-04] MEDS: BUDESONIDE 0.5 MG/2 ML INHA INH SCH ×2 (07:00→21:00)
[2020-03-04] MEDS: FLUOXETINE HCL 20 MG CAPSULE PO SCH (08:52)
[2020-03-04] MEDS: HEPARIN 5,000 UNITS/ML, 1ML SQ SCH ×2 (08:52→16:07)
[2020-03-04] MEDS: OMEPRAZOLE 20 MG CAPSULE.DR PO SCH (08:52)
[2020-03-04] MEDS: METHADONE 10 MG TABLET PO SCH ×2 (08:52→16:07)
[2020-03-04] MEDS ORDERED: BISA10SU4 PR (10:53)
[2020-03-04] MEDS ORDERED: ACET325T26 PO (10:53)
[2020-03-04] MEDS ORDERED: DOCU100C33 PO (10:53)
[2020-03-04] MEDS ORDERED: METH500T7 PO (10:53)
[2020-03-04] MEDS ORDERED: POLY17PO5 NG (10:53)
[2020-03-04] MEDS ORDERED: OXYC5TAB3 PO (10:53)
[2020-03-04] MEDS ORDERED: POLYETHYLENE GLYCOL 17 GM PACKET NG PRN (11:00)
[2020-03-04 12:39] VITALS: BP 111/70
[2020-03-04 18:28] VITALS: BP 120/70
[2020-03-04] MEDS ORDERED: DOCUSATE 100 MG CAPSULE PO SCH (21:00)
== END 2020-03-04 19:30 | DRG 480 ==
LOC: ED 21:59 → EDIP 22:11 → 4NE 22:44
PROVIDERS: ADMIT Family Medicine; ATTEND Hospitalist
PROC: 0T9B70Z Drainage of Bladder with Drainage Device, Via Natural or Artificial Opening (ICD-10-PCS; 2020-03-02)
PROC: 0QS706Z Reposition Left Upper Femur with Intramedullary Internal Fixation Device, Open Approach (ICD-10-PCS; principal; 2020-03-02 17:00)
DX: S72.142A Displaced intertrochanteric fracture of left femur, initial encounter for closed fracture (principal); G92 Toxic encephalopathy; N17.9 Acute kidney failure, unspecified; J96.10 Chronic respiratory failure, unspecified whether with hypoxia or hypercapnia; I50.22 Chronic systolic (congestive) heart failure; F11.20 Opioid dependence, uncomplicated; B37.49 Other urogenital candidiasis; G62.9 Polyneuropathy, unspecified; G89.29 Other chronic pain; J44.9 Chronic obstructive pulmonary disease, unspecified; K21.9 Gastro-esophageal reflux disease without esophagitis; N40.0 Benign prostatic hyperplasia without lower urinary tract symptoms; F32.9 Major depressive disorder, single episode, unspecified; M54.9 Dorsalgia, unspecified; Z90.79 Acquired absence of other genital organ(s); Z87.442 Personal history of urinary calculi; Z90.49 Acquired absence of other specified parts of digestive tract; Z88.2 Allergy status to sulfonamides; Z91.02 Food additives allergy status; Z91.048 Other nonmedicinal substance allergy status; Z79.51 Long term (current) use of inhaled steroids; Z87.891 Personal history of nicotine dependence; W18.30XA Fall on same level, unspecified, initial encounter; Y92.009 Unspecified place in unspecified non-institutional (private) residence as the place of occurrence of the external cause
CPT/HCPCS: 36415; 70450; 71045; 76000; 80048; 80053; 81001; 83605; 85025; 85610; 87040; 87086; 87106; 93005; 94640; C1713; G0378; J0690; J0696; J1100; J1170; J1644; J2250; J2405; J2704; J3010; J7626; C1765; J0330; J2270; J2370; J7030; J7050

== ENCOUNTER 2021-04-03 14:10 | Outpatient (CLI) | payer MEDICARE ==
[~2021-04-03 14:10] MED LIST changes: +ACET325T26 PO; +BISA10SU4 PR; +DOCU100C33 PO; +METH-639 PO; +OXYC5TAB98 PO; +POLY17PO5 NG
[2021-05-09] MEDS ORDERED: HYDR4TAB48 PO ×2 (08:21→15:28)
[2021-05-09] MEDS ORDERED: METH5TAB2 PO ×2 (08:21→15:28)
[2021-05-11] MEDS ORDERED: METH4TAB2 PO (16:54)
== END 2021-04-03 23:59 | disposition home or self-care (01) ==
LOC: WOUND 14:10
PROVIDERS: ATTEND Internal Medicine
DX: I87.312 Chronic venous hypertension (idiopathic) with ulcer of left lower extremity (principal); E11.622 Type 2 diabetes mellitus with other skin ulcer; L97.821 Non-pressure chronic ulcer of other part of left lower leg limited to breakdown of skin; S80.211A Abrasion, right knee, initial encounter; J96.21 Acute and chronic respiratory failure with hypoxia; R60.9 Edema, unspecified; J44.9 Chronic obstructive pulmonary disease, unspecified; F32.9 Major depressive disorder, single episode, unspecified; F41.9 Anxiety disorder, unspecified; I11.0 Hypertensive heart disease with heart failure; I50.32 Chronic diastolic (congestive) heart failure; M19.90 Unspecified osteoarthritis, unspecified site; E11.40 Type 2 diabetes mellitus with diabetic neuropathy, unspecified; N40.0 Benign prostatic hyperplasia without lower urinary tract symptoms; Z90.49 Acquired absence of other specified parts of digestive tract; Z88.2 Allergy status to sulfonamides; Z88.8 Allergy status to other drugs, medicaments and biological substances; Z79.899 Other long term (current) drug therapy; X58.XXXA Exposure to other specified factors, initial encounter; Y93.89 Activity, other specified; Y99.8 Other external cause status; Y92.89 Other specified places as the place of occurrence of the external cause
CPT/HCPCS: G0463